=== PATIENT | female | born 1990 | race Caucasian/White ===

== ENCOUNTER 2025-04-27 09:07 | Emergency (ER) | payer OTHER, SELFPAY ==
--- OUTSIDE RECORDS SUMMARY | 2025-04-27 09:13 | XMS_ITS | Encounter Summary ---
Author Organization [facility] er Address [address] [place] [address] Care Team Providers Care Pasting Inspector Name Role Phone Wendy Mcguire MD Primary Care Provider [phone] Encounter Details Date Type Department Care Team (Late st Contact Info) Description 02/18/2025 Telephone SE [facility] [address] [place] [address] Kiana Juárez, [facility] [address] [place] [address] Social History Tobacco Use Types Packs/Day Years Used Date Smoking Tobacco: Former Cigarettes Smokeless Tobacco: Never Alcohol Use Standard Drinks/Week Comments Not Currently 0 (1 standard drink = 0.6 oz pur e alcohol) Sober since 04/22/24, B1300 Health Literacy Answer Date Recor ded How often do you need to hav e someone help you when you read instructions, pamphlets, or other written material from your doctor or pharmacy? Never 08/18/2024 [facility] Utilities Answer Date Recorded In the past 12 months has e electric, gas, oil, or water company threatened to shut off services in your home? No 08/18/2024 Social Connection and Isolation Panel Answer Date Recorded In a typical week, how many times do you talk on the phone with family, friends, or neighbors? More than three times a week 08/18/2024 How often do you get togethe r with friends or relatives? Once a week 08/18/2024 How often do you attend chur ch or episcopal services? More than 4 times per year 08/18/2024 Do you belong to any clubs o r organizations such as episcopalian groups, unions, fraternal or athletic groups, or school groups? Yes 08/18/2024 How often do you attend meet ings of the clubs or organizations you belong to? More than 4 times per year 08/18/2024 Are you , , di vorced, , never , or living with a partner? Living with partner 08/18/2024 AUDIT-C Answer Date Recorded Q1: How often do you have a drink containing alcohol? Never 08/18/2024 Q2: How many drinks containi ng alcohol do you have on a typical day when you are drinking? Patient does not drink Q3: How often do you have si x or more drinks on one occasion? Never 08/18/2024 Overall Financial Resource Strain (CARDIA) Answe r Date Recorded How hard is it for you to pa y for the very basics like food, housing, medical care, and heating? Hard 08/18/2024 PHQ-2 Answer Date Recorded PHQ-9 Total Score 8 12/30/2024 [facility] - Occupational Stress Questionnaire Answer Date Recorded Do you feel stress - tense, restless, nervous, or anxious, or unable to sleep at night because your mind is troubled all the time - these days? Rather much 08/18/2024 Exercise Vital Sign Answer Date Recorde d On average, how many days pe r week do you engage in moderate to strenuous exercise (like a brisk walk)? 5 days 08/18/2024 On average, how many minutes do you engage in exercise at this level? 30 min 08/18/2024 Hunger Vital Sign Answer Date Recorded Within the past 12 months, y ou worried that your food would run out before you got the money to buy more. Often true Within the past 12 months, t he food you bought just didn't last and you didn't have money to get more. Sometimes true PRAPARE - Transportation Answer Date Re corded In the past 12 months, has l ack of transportation kept you from medical appointments or from getting medications? No 07/25 In the past 12 months, has l ack of transportation kept you from meetings, work, or from getting things needed for daily living? No 08/18/2024 [place] Depression Scale Answer Date Recorded [place] Depression Scale Total 10 02/18/2025 The thought of harming myself has occurred to me . Never 02/18/2025 Housing Stability Vital Sign Answer Mark e Recorded In the last 12 months, was t here a time when you were not able to pay the mortgage or rent on time? Yes 08/18/2024 In the past 12 months, how m any times have you moved where you were living? 1 08/18/2024 At any time in the past 12 m [facility], were you homeless or living in a mcc (including now)? 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 1 02/18/2025 11:00 AM Shaan Whitten RN I have looked forward with enjoyment to things. 1 02/18/2025 11:00 AM Duglas Vincent RN I have blamed myself unnecessarily when things went wrong. 2 02/18/2025 11:00 AM Candace Vincent RN I have been anxious or worri ed for no good reason. 1 02/18/2025 11:00 AM Candace Vincent RN I have felt scared or panick y for no good reason. 2 02/18/2025 11:00 AM Candace Vincent RN Things have been getting on top of me. 0 02/18/2025 11:00 AM Candace Vincent RN I have been so unhappy that I have had difficulty sleeping. 2 02/18/2025 11:00 AM Shaan Whitten RN I have felt sad or miserable. 1 02/18/2025 11:00 AM Shaan Vincent RN I have been so unhappy that I have been crying. 0 02/18/2025 11:00 AM CDT Candace Dominguez RN The thought of harming myschemo f has occurred to me. 0 02/18/2025 11:00 AM CDT Candace Dominguez RN [place] Depressi on Scale Total 10 02/18/2025 11:00 AM CDT Candace Dominguez RN documented as of this encounter Miscellaneous Notes * Telephone Encounter - Kiera Redman - 02/18/2025 3:37 PM CDT Called patient per request from social service to get her in for an urgent apt to our social service dept. Patient declined to scheduled an apt stating that she feels everything is going fine that itis just first time mom things. Drier And Pulverizer Tender told patient that if she started to feel like she needed tosee someone that she should call our social service dept and we would do what we could to get her in for an apt NANCY. Patient stated she would call if she felt she needed to come in. documented in this encounter Plan of Treatment Not on file documented as of this encounter Visit Diagnoses Not on filedocumented in this encounter Care Teams Pasting Inspector Relationship Specialty Start Date End Date Wendy Mcguire MD [address] [place] [phone] PCP - General 12/08/24 documented as of this encounter
--- OUTSIDE RECORDS SUMMARY | 2025-04-27 09:13 | XMS_ITS | Encounter Summary ---
Author Organization [facility] er Address [address] [place] [address] Care Team Providers Care Size Cutter Name Role Phone Wendy Mcguire MD Primary Care Provider [phone] Encounter Details Date Type Department Care Team (Late st Contact Info) Description 02/17/2025 Results Follow-Up [facility]'s [facility] Dungeon Master [address] [place] [address] Carolina Alves MD [address] [place] [address] Confirmed Drug Abuse Panel, Autumn, U, Adulterants Survey, Autumn, U, RPR Social History Tobacco Use Types Packs/Day Years [...] from your doctor or pharmacy? Never 08/18/2024 [facility] Utilities Answer Date Recorded In the past 12 months has [employer], gas, oil, or water [employer] threatened to shut off services in your [...] 08/18/2024 How often do you attend chur or adventism services? More than 4 times per year 08/18/2024 Do you belong to any clubs o r organizations such as oriental orthodox groups, unions, fraternal or athletic groups, or [...] Date Recorded PHQ-9 Total Score 8 12/30/2024 [facility] - Occupational Stress Questionnaire Answer Date Recorded [...] things needed for daily living? No 08/18/2024 [place] Depression Scale Answer Date Recorded [place] Depression Scale Total 10 02/18/2025 The thought [...] any time in the past 12 m [facility], were you homeless or living in a prison (including now)? 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 0 02/18/2025 11:00 AM Candace Vincent RN The thought of harming myschemo f has occurred to me. 0 02/18/2025 11:00 AM Candace Vincent RN [place] Depressi on Scale Total 10 02/18/2025 11:00 AM Candace Vincent RN documented as of this encounter Plan of Treatment Not on file documented as of this encounter Visit Diagnoses Not on filedocumented in this encounter Care Teams Size Cutter Relationship Specialty Start Date End Date Wendy Mcguire MD [address] [place] [phone] PCP - General 12/08/24 documented as of this encounter
--- OUTSIDE RECORDS SUMMARY | 2025-04-27 09:13 | XMS_ITS | Encounter Summary ---
Author Organization [facility] er Address [address] [place] [address] Care Team Providers Care Premium Note Interest Calculator Clerk Name Role Phone Wendy Mcguire MD Primary Care Provider [phone] Reason for Visit * Reason Comments Med Refill Encounter Details Date Type Department Care Team (Late st Contact Info) Description 10/01/2022 Refill [facility] [address] [place] [address] Adarsh Manuel MD [address] [place] [address] Chronic insomnia; Chemical dependency (HCC) Social History Tobacco Use Types Packs/Day Years Used Date Smoking Tobacco: Former Smokeless Tobacco: Never Alcohol Use Standard Drinks/Week Comments Not Currently 0 (1 standard drink = 0.6 oz pur e alcohol) PHQ-2 Answer Date Recorded PHQ-9 Total Score 2 06/05/2022 Comments No Sex and Gender Information Value Date Recorded Sex Assigned at Not on file Legal Sex Female 2:24 PM CELLAR PACKER Gender Identity Not on file Sexual Orientation Not on file documented as of this encounter Functional Status documented as of this encounter Miscellaneous Notes * Telephone Encounter - Roselyn Blanchard - 10/04/2022 9:32 AM CDT Tried calling both numbers on file and both state she is no longer in the facility. * Telephone Encounter - Karina [place] RN - 10/03/2022 3:31 PM CDT Please call Dr. Petty says needs appt. * Telephone Encounter - Domitila Styles LPN - 10/03/2022 2:39 PM CDT Upcoming appointment with provider: Visit date not found Last visit in provider department: 06/05/2022 Last visit requested medication was discussed:06/05/22 Last Rx: QUEtiapine (SEROquel) 25 MG tablet 09/16/22 #15 no refills cyproheptadine (PERIACTIN) 4 MG tablet 08/27/22 #45 no refills busPIRone (BUSPAR) 15 MG tablet 08/27/22 #60 no refills gabapentin (NEURONTIN) 800 MG tablet 08/27/22 #90 no refills Requested Prescriptions Pending Prescriptions Disp Refills QUEtiapine (SEROquel) 25 MG tablet [Pharmacy Med Name: QUEtiapine Fumarate 25MG TABS*] 15 tablet 0 Sig: TAKE 1 TABLET BY MOUTH DAILY AT BEDTIME NEEDED cyproheptadine (PERIACTIN) 4 MG tablet [Pharmacy Med Name: Cyproheptadine HCl 4MG TABS] 3 tablet Sig: TAKE 1 & 1/2 TABLETS BY MOUTH AT BEDTIME NEEDED busPIRone (BUSPAR) 15 MG tablet [Pharmacy Med Name: busPIRone HCl 15MG TABS*] 4 tablet Sig: TAKE 1 TABLET BY MOUTH TWICE A DAY FOR ANXIETY gabapentin (NEURONTIN) 800 MG tablet [Pharmacy Med Name: Gabapentin 800MG TABS] 6 tablet Sig: TAKE 1 TABLET BY MOUTH THREE TIMES A DAY NEEDED Labs: Vitals: BP Readings from Last 2 Encounters: 06/05/22 110/56 02/26/22 106/68 Last Controlled Substance Agreement (CSA): Last Random Urine Drug Screen (RUDS): documented in this encounter Plan of Treatment Not on file documented as of this encounter Visit Diagnoses Diagnosis Chronic insomnia Insomnia, unspecified Chemical dependency (HCC) Unspecified drug dependence, unspecified abuse documented in this encounter Care Teams Premium Note Interest Calculator Clerk Relationship Specialty Start Date End Date Wendy Mcguire MD [address] [place] [phone] PCP - General 12/08/24 documented as of this encounter
--- OUTSIDE RECORDS SUMMARY | 2025-04-27 09:13 | XMS_ITS | Encounter Summary ---
Author Organization [facility] er Address [address] [place] [address] Care Team Providers Care Briquette Molder Name Role Phone Wendy Mcguire MD Primary Care Provider [phone] Encounter Details Date Type Department Care Team (Late st Contact Info) Description 02/07/2025 Results Follow-Up [facility]'s [facility] Solaris Administrator [address] [place] [address] Kala Saeed, DNP, FISHER CRAB, ELECTRICAL MAINTENANCE TECHNICIAN [address] [place] [address] Group B strep culture Social History Tobacco Use Types Packs/Day Years [...] from your doctor or pharmacy? Never 08/18/2024 [facility] Utilities Answer Date Recorded In the past 12 months has [employer], gas, oil, or water [employer] threatened to shut off services in your [...] How often do you attend chur or spiritism services? More than 4 times per year 08/18/2024 Do you belong to any clubs o r organizations such as religion groups, unions, fraternal or athletic groups, or [...] Date Recorded PHQ-9 Total Score 8 12/30/2024 [facility] - Occupational Stress Questionnaire Answer Date Recorded [...] things needed for daily living? No 08/18/2024 [place] Depression Scale Answer Date Recorded [place] Depression Scale Total 10 02/18/2025 The thought [...] time in the past 12 m [facility], were you homeless or living in a penitentiary (including now)? 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 0 02/18/2025 11:00 AM Candace Vincent RN [place] Depressi on Scale Total 10 02/18/2025 11:00 AM Candace Vincent RN documented as of this encounter Plan of Treatment Not on file documented as of this encounter Visit Diagnoses Not on filedocumented in this encounter Care Teams Briquette Molder Relationship Specialty Start Date End Date Wendy Mcguire MD [address] [place] [phone] PCP - General 12/08/24 documented as of this encounter
--- OUTSIDE RECORDS SUMMARY | 2025-04-27 09:13 | XMS_ITS | Encounter Summary ---
Author Organization [facility] er Address [address] [place] [address] Care Team Providers Care Traffic Workforce Representative Name Role Phone Wendy Mcguire MD Primary Care Provider [phone] Reason for Visit * Reason Onset Date Comments Med Refill 11/01/2021 Encounter Details Date Type Department Care Team (Late st Contact Info) Description 11/01/2021 Refill [facility] [address] [place] [address] Adarsh Manuel MD [address] [place] [address] Chemical dependency (HCC) (Primary Dx) Social History Tobacco Use Types Packs/Day Years Used Date Smoking Tobacco: Former Smokeless Tobacco: Never Alcohol Use Standard Drinks/Week Comments Not Currently 0 (1 standard drink = 0.6 oz pur e alcohol) PHQ-2 Answer Date Recorded PHQ-9 Total Score 14 10/15/2021 Comments No Sex and Gender Information Value Date Recorded Sex Assigned at Not on file Legal Sex Female 2:24 PM REVENUE INSPECTOR Gender Identity Not on file Sexual Orientation Not on file documented as of this encounter Plan of Treatment Not on file documented as of this encounter Visit Diagnoses Diagnosis Chemical dependency (HCC)- Primary Unspecified drug dependence, unspecified abuse documented in this encounter Additional Health Concerns Infection Onset Date Last Indicated Resolved Time COVID-19 Rule Out 03/12/2022 03/12/2022 03/12/2022 10:41 AM CDT documented as of this encounter Care Teams Traffic Workforce Representative Relationship Specialty Start Date End Date Wendy Mcguire MD [address] [place] [phone] PCP - General 12/08/24 documented as of this encounter
--- OUTSIDE RECORDS SUMMARY | 2025-04-27 09:13 | XMS_ITS | Encounter Summary ---
Author Organization [facility] er Address [address] [place] [address] Care Team Providers Care Director It Project Name Role Phone Wendy Mcguire MD Primary Care Provider [phone] Encounter Details Date Type Department Care Team (Late st Contact Info) Description 09/14/2021 Telephone [facility] [address] [place] [address] Adarsh Manuel MD [address] [place] [address] Social History Tobacco Use Types Packs/Day Years Used Date Smoking Tobacco: Former Smokeless Tobacco: Never PHQ-2 Answer Date Recorded PHQ-9 Total Score 12 08/16/2021 Comments Unknown Sex and Gender Information Value Date Recorded Sex Assigned at Not on file Legal Sex Female 2:24 PM CANVASSING MANAGER Gender Identity Not on file Sexual Orientation Not on file documented as of this encounter Functional Status documented as of this encounter Plan of Treatment Not on file documented as of this encounter Visit Diagnoses Not on filedocumented in this encounter Additional Health Concerns Infection Onset Date Last Indicated Resolved Time COVID-19 Rule Out 10/15/2021 10/15/2021 10/15/2021 10:12 AM CDT COVID-19 Rule Out 03/12/2022 03/12/2022 03/12/2022 10:41 AM CDT documented as of this encounter Care Teams Director It Project Relationship Specialty Start Date End Date Wendy Mcguire MD [address] [place] [phone] PCP - General 12/08/24 documented as of this encounter
--- OUTSIDE RECORDS SUMMARY | 2025-04-27 09:13 | XMS_ITS | Encounter Summary ---
Author Organization [facility] er Address [address] [place] [address] Care Team Providers Care Medical Assembly Name Role Phone Wendy Mcguire MD Primary Care Provider [phone] Encounter Details Date Type Department Care Team (Late st Contact Info) Description 02/09/2025 Results Follow-Up [facility] Plant Attendant Or Assistant Operator [address] [place] [address] Kala Saeed, DNP, SUPERVISOR WOOD CREW, BOARD OF DIRECTORS [address] [place] [address] Ultrasound OB Biophysical Profile WO Non Stress Testing Social History Tobacco Use Types Packs/Day Years [...] from your doctor or pharmacy? Never 08/18/2024 [facility] Utilities Answer Date Recorded In the past 12 months has [employer], [employer], oil, or water [employer] threatened to shut off services in your [...] How often do you attend chur or hindu services? More than 4 times per year 08/18/2024 Do you belong to any clubs o r organizations such as sikh groups, unions, fraternal or athletic groups, or [...] Date Recorded PHQ-9 Total Score 8 12/30/2024 [facility] - Occupational Stress Questionnaire Answer Date [...] things needed for daily living? No 08/18/2024 [place] Depression Scale Answer Date Recorded [place] Depression Scale Total 10 02/18/2025 The thought [...] any time in the [facility] or living in a correction (including now)? 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 Not on file Not on file documented as of this encounter Functional Status * Question Answer Date of Assessment Author BP 123/79 02/14/2025 9:15 AM Eula June RN Pulse 93 02/14/2025 9:15 AM Eula June RN * [place] Depression Scale: In the Past 7 Days [...] 0 02/18/2025 11:00 AM Candace Vincent RN [place] Depressi on Scale Total 10 02/18/2025 11:00 AM Candace Vincent RN documented as of this encounter Plan of Treatment Not on file documented as of this encounter Visit Diagnoses Not on filedocumented in this encounter Care Teams Medical Assembly Relationship Specialty Start Date End Date Wendy Mcguire MD [address] [place] [phone] PCP - General 12/08/24 documented as of this encounter
--- OUTSIDE RECORDS SUMMARY | 2025-04-27 09:14 | XMS_ITS | Encounter Summary ---
Author Organization [facility] er Address [address] [place] [address] Care Team Providers Care Quality Consultant Name Role Phone Wendy Mcguire MD Primary Care Provider [phone] Reason for Visit * Reason Comments Med Refill Encounter Details Date Type Department Care Team (Late st Contact Info) Description 03/15/2022 Refill [facility] Dermatology [address] [place] [address] Mohini Veras MD Acne vulgaris Social History Tobacco Use Types Packs/Day Years Used Date Smoking Tobacco: Former Smokeless Tobacco: Never Alcohol Use Standard Drinks/Week Comments Not Currently 0 (1 standard drink = 0.6 oz pur e alcohol) PHQ-2 Answer Date Recorded PHQ-9 Total Score 3 02/12/2022 Comments No Sex and Gender Information Value Date Recorded Sex Assigned at Not on file Legal Sex Female 2:24 PM RADIO ENGINEER Gender Identity Not on file Sexual Orientation Not on file documented as of this encounter Miscellaneous Notes * Telephone Encounter - Sophia Sweeney MD - 03/18/2022 5:48 PM CDT Patient no-showed for visit. Needs appointment for refills. * Telephone Encounter - Berenice Lemos LPN - 03/18/2022 3:29 PM CDT Patient is scheduled to be seen today. Please advise at visit. Last visit in provider department: 12/15/2021 Last visit requested medication was discussed: 12/15/2021 Last Rx: #60 with 2 refills 12/15/2021 Requested Prescriptions Pending Prescriptions Disp Refills ??? doxycycline (VIBRAMYCIN) 100 MG capsule [Pharmacy Med Name: Doxycycline Hyclate 100MG CAPS] 60 capsule Sig: TAKE 1 CAPSULE BY MOUTH TWICE A DAY TAKE WITH FOOD - NOT DAIRY Labs: n/a Vitals: BP Readings from Last 2 Encounters: 02/26/22 106/68 02/12/22 108/63 documented in this encounter Plan of Treatment Not on file documented as of this encounter Visit Diagnoses Diagnosis Acne vulgaris Other acne documented in this encounter Care Teams Quality Consultant Relationship Specialty Start Date End Date Wendy Mcguire MD [address] [place] [phone] PCP - General 12/08/24 documented as of this encounter
--- OUTSIDE RECORDS SUMMARY | 2025-04-27 09:14 | XMS_ITS | Clinical Summary ---
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 [place] [address] * RPR (02/13/2025 6:29 AM CDT) RPR NON-REACTI VE Non-reacti ve 02/15/2025 9:06 PM CDT [facility] Blood 02/13/2025 6:29 AM CDT 02/13/2025 6:59 AM CDT us Bre Mcdaniel MD LAB BLOOD ORDERABLES Final Res ult [facility] [address] [place] [phone] * Miscellaneous [facility] (02/12/2025 8:15 PM CDT) Miscellaneous [facility] see below 02/22/2025 8:50 AM CDT [facility] Comment: See Scanned [place] Report 02/12/2025 8:15 PM CDT 02/13/2025 9:07 PM CDT Bre Mcdaniel MD LAB BLOOD ORDERABLES Final Res ult Performing Organization Address City/[facility]/ZIP Co de Phone Number [facility] [address] [place] [address], * (ABNORMAL) Carboxy-THC Confirmation, Ivan, U (02/12/2025 8:15 PM CDT) Pathologist [facility] Carboxy-THC Immunoassay Screen SEE BELOW(A) Cutoff: 50 02/17/2025 12:42 PM CDT [facility] Comment: Presumptive Positive Interpretation Positive. 02/17/2025 12:42 PM CDT [facility] Comment: ADDITIONAL INFORMATION This report is intended for use in clinical monitoring and management of patients. It is not intended for use in employment-related testing. This test was developed and its performance characteristics determined by [facility] in a manner consistent with CLIA requirements. This test has not been cleared or approved by the U.S. Food and Drug Administration. Delta-8 Carboxy-THC by LC-MS/MS 304 Cutoff: 5 ng/mL 02/17/2025 12:42 PM CDT [facility] Delta-9 Carboxy-THC by LC-MS/MS 695 Cutoff: 5 ng/mL 02/17/2025 12:42 PM CDT [facility] Chain of Custody - 02/18/20 12:42 PM CDT [facility] Comment: Chain of custody documents are on file in the [facility]. Test Performed by: [place] [address] Office Machinery Or Equipment Installer: Lissett Oseguera Ph.D.; CLIA# [id number] 02/12/2025 8:15 PM CDT 02/13/2025 9:07 PM CDT us Bre Mcdaniel MD LAB URINE ORDERAB[place] [address], [place] * Adulterants Survey, Ivan, U (02/12/2025 8:15 PM CDT) Creatinine Concentration 89.4 mg/dL 02/16/2025 9:57 AM CDT [facility] Specific [place], Urine 1.018 02/16/2025 9:57 AM CDT [facility] pH, Urine 6.5 02/16/2025 9:57 AM CDT [facility] Oxidants Negative Cutoff: 200 mg/L 02/16/2025 9:57 AM CDT [facility] Comment Normal 02/16/2025 9:57 AM CDT [facility] Comment: Test Performed by: [facility] [place] [address] Office Machinery Or Equipment Installer: Lissett Oseguera Ph.D.; CLIA# [id number] 02/12/2025 8:15 PM CDT 02/13/2025 9:07 PM CDT Bre Mcdaniel MD LAB URINE ORDERABLES [place] [address], [place] * (ABNORMAL) Confirmed Drug Abuse Panel, Ivan, U (02/12/2025 8:15 PM CDT) [facility] Alcohol SEE BELOW(A) Cutoff: 10 mg/dL 02/16/2025 1:25 PM CDT [facility] Comment: Presumptive Positive Drug confirmation to follow. Presumptive Positive means that the screening method is positive, but the test needs to be run by a confirmatory method before being finalized. Amphetamines Negative Cutoff: 500 ng/mL 02/16/2025 1:25 PM CDT [facility] Barbiturates Negative Cutoff: 200 ng/mL 02/16/2025 1:25 PM CDT [facility] Benzodiazepines Negative Cutoff: 100 ng/mL 02/16/2025 1:25 PM CDT [facility] Cocaine Negative Cutoff: 150 ng/mL 02/16/2025 1:25 PM T [facility] Comment: This cocaine immunoassay targets benzoylecgonine the primary metabolite of cocaine. Methadone Metabolite Negative Cutoff: 300 ng/mL 02/16/2025 1:25 PM CDT [facility] Opiates Negative Cutoff: 300 ng/mL 02/16/2025 1:25 PM CDT [facility] Phencyclidine, Mec Negative Cutoff: 25 ng/mL 02/16/2025 1:25 PM CDT [facility] Tetrahydrocannabinol SEE BELOW(A) Cutoff: 50 ng/mL 02/16/2025 1:25 PM T [facility] Comment: Presumptive Positive This immunoassay targets delta-9 tetrahydrocannabinol carboxylic acid (THC-COOH), a metabolite of delta-9 tetrahydrocannabinol the main psychoactive ingredient of marijuana. Drug confirmation to follow. Presumptive Positive means that the screening method is positive, but the test needs to be run by a confirmatory method before being finalized. Chain of Custody - 02/17/20 1:25 PM CDT [facility] Comment: Chain of custody documents are on file in the [facility]. ADDITIONAL INFORMATION This report is intended for use in clinical monitoring or management of patients. It is not intended for use in employment-related testing. This test has been modified from the multimedia developer's instructions. Its performance characteristics were determined by [facility] in a manner consistent with CLIA requirements. This test has not been cleared or approved by the U.S. Food and Drug Administration. Test Performed by: [facility] [address] [facility], [place] [address] Office Machinery Or Equipment Installer: Lissett Oseguera Ph.D.; CLIA# [id number] Urine (Urine, Catheter) 02/12/2025 8:15 PM CDT 02/13/2025 9:07 PM CDT us Bre Mcdaniel MD LAB URINE ORDERABLES Final Res ult [address] [address], [place] * (ABNORMAL) Rapid drug screen, urine (02/12/2025 8:15 PM CDT) [facility] Rapid Urine Drug Screen ----- 02/12/2025 11:33 PM [facility] Comment: This is a screening test. Positive results should be considered presumptive and are sent to [facility] for confirmation. This test is not for legal purposes - only medical. Tetrahydrocannabinol DETECTED(A ) Not Detected 02/12/2025 11:57 PM [facility] Phencyclidine, Mec NOT DETECTED Not Detected 02/12/2025 11:57 PM [facility] Cocaine NOT DETECTED Not Detected 02/12/2025 11:57 PM [facility] Methamphetamine NOT DETECTED Not Detected 02/12/2025 11:57 PM [facility] Opiates NOT DETECTED Not Detected 02/12/2025 11:57 PM [facility] Amphetamines NOT DETECTED Not Detected 02/12/2025 11:57 PM [facility] Benzodiazepines NOT DETECTED Not Detected 02/12/2025 11:57 PM [facility] TCA, Urine NOT DETECTED Not Detected 02/12/2025 11:57 PM [facility] Methadone NOT DETECTED Not Detected 02/12/2025 11:57 PM [facility] Barbiturates NOT DETECTED Not Detected 02/12/2025 11:57 PM [facility] Oxycodone NOT DETECTED Not Detected 02/12/2025 11:57 PM CDT [facility] Buprenorphine NOT DETECTED Not Detected 02/12/2025 11:57 PM CDT [facility] Detectable Levels ----- 025 11:33 PM CDT [facility] Comment: Amphetamines 500 ng/mL Barbiturates 200 ng/mL Buprenorphine 10 ng/ml Benzodiazepines 150 ng/mL Cocaine 150 ng/mL Methamphetamine 500 ng/mL Methadone 200 ng/mL Opiates 100 ng/mL Oxycodone 100 ng/mL Phencyclidine 25 ng/mL Tetrahydrocannabinol 50 ng/mL Tricyclic Antidepressant 300 ng/mL Urine (Urine, Catheter) 02/12/2025 8:15 PM CDT 02/12/2025 11:33 PM CDT Bre Mcdaniel MD LAB URINE ORDERABLES Final Res ult Performing Organization Address [facility]/ZIP Co de Phone Number [facility] [address] [place] [address] * Type and Screen (Gel) (02/12/2025 7:05 PM CDT) ABO/Rh B POS 02/12/2025 7:57 PM CDT [facility] Antibody Screen NEG 02/12/2025 7:57 PM CDT [facility] Blood (Blood, Venous) 02/12/2025 7:05 PM CDT 02/12/2025 7:19 PM CDT Bre Mcdaniel MD LAB BLOOD BANK TEST ORDERABLES Final Result Performing Organization Address [facility]/ZIP Co de Phone Number [facility] [address] [place], [place] [phone] * HC AN EPIDURAL BLOCK CHARGE (02/12/2025 6:40 PM CDT) Narrative Angela Mittal MD - 02/12/2025 6:40 PM CDT Angela Mittal MD 02/12/2025 6:40 PM Epidural Block Patient location during procedure: OB Start time: 02/12/2025 6:25 PM End time: 02/12/2025 6:31 PM Reason for block: procedure for pain Staffing Performed: anesthesiologist Anesthesiologist: Angela Mittal MD Performed by: Angela Mittal MD Authorized by: Angela Mittal MD Preanesthetic Checklist Completed: patient identified, IV checked, site marked, risks and benefits discussed, surgical consent, monitors and equipment checked, pre-op evaluation and timeout performed Block Placement Patient position: sitting Prep: ChloraPrep and site prepped and draped Patient monitoring: heart rate and continuous pulse ox Approach: midline Location: L4-L5 Needle Needle type: Tuohy Needle gauge: 17 G Needle length: 3.5 Needle insertion depth: 7 cm Catheter type: side hole Catheter size: 19. Test dose: No Spinal Effects and No Tinnitus Medications Administered lidocaine 1.5%-EPINEPHrine 1:200,000 (XYLOCAINE W/EPI) injection - Epidural 3 mL - 02/12/2025 6:28:00 PM us Angela Mittal MD ANESTHESIA ORDERABLES Final Result * Ultrasound OB Biophysical Profile WO Non Stress Testing (02/09/2025 4:44 PM CDT) Anatomical Region Laterality Modality Body, Pelvis Ultrasound Impressions 02/09/2025 4:53 PM CDT The biophysical profile score is 8 out of 8. Narrative 02/09/2025 4:53 PM CDT INDICATION: non reactive NST COMPARISON: OB ultrasound January 19, 2025 FINDINGS: ULTRASOUND OB BIOPHYSICAL PROFILE WO NON STRESS TESTING The biophysical profile score is 8 out of 8. Cervical length is within normal limits, measuring 4.0 cm. The presentation is cephalic. The placenta is anterior. The heart rate is 155 beats per minute. The MVP is within normal limits, measuring 6.2 cm. The stomach, kidneys, bladder, and diaphragm show no anomaly. Biophysical profile (testing time 30 minutes) 1. breathing movements - continuous breathing for 30 seconds within 30 minutes; present = 2 and absent =0. Score = 2 2. movement - three or more discrete body/limb movements within 30 minutes; present = 2 and absent = 0. Score = 2 3. tone - one or more episodes of extension of a extremity with return to flexion, or opening or closing of a hand; present = 2 and absent = 0. Score = 2 4. Amniotic fluid volume - a single vertical pocket exceeding 2 cm; present = 2 and absent = 0. Score = 2 Procedure Note Gisele Simons MD - 02/09/2025 INDICATION: non reactive NST COMPARISON: OB ultrasound January 19, 2025 FINDINGS: ULTRASOUND OB BIOPHYSICAL PROFILE WO NON STRESS TESTING The biophysical profile score is 8 out of 8. Cervical length is withinnormal limits, measuring 4.0 cm. The presentation is cephalic. Theplacenta is anterior. The heart rate is 155 beats per minute. TheMVP is within normal limits, measuring 6.2 cm. The stomach,kidneys, bladder, and diaphragm show no anomaly. Biophysical profile (testing time 30 minutes) 1. breathing movements - continuous breathing for 30 seconds ntwext19 minutes; present = 2 and absent =0. Score = 2 2. movement - three or more discrete body/limb movements within 30minutes; present = 2 and absent = 0. Score = 2 3. tone - one or more episodes of extension of a extremitywith return to flexion, or opening or closing of a hand; present = 2 andabsent = 0. Score = 2 4. Amniotic fluid volume - a single vertical pocket exceeding 2 cm;present = 2 and absent = 0. Score = 2 IMPRESSION: The biophysical profile score is 8 out of 8. us Kala Saeed DNP, LAUNDRY BAG PUNCH OPERATOR, STAGING TECHNICIAN IMG OB US PROCEDU RES Final Result * Group B strep culture (02/02/2025 10:30 AM CDT) Group B Strep Culture No Grp B Strep isolated. 02/05/2025 10:40 AM CDT [facility] Group B Strep (Vaginal/rectal) 02/02/2025 10:30 AM CDT 02/02/2025 1:45 PM CDT Comment:Group B Strep Cultur e us Kala Saeed DNP, LAUNDRY BAG PUNCH OPERATOR, STAGING TECHNICIAN LAB MICROBIOLOGY - GENERAL ORDERABLES Final Result [facility] [address] [place] [address] * 3 Hr GTT () (02/02/2025 8:12 AM CDT) Fasting Blood Glucose, 3 hr OB 80 70 - 95 mg/dL 02/02/2025 8:35 AM CDT [facility] 1Hr Glucose (OB) 131 mg/dL 02/03/20 12:03 PM T [facility] 2Hr Glucose (OB) 163 mg/dL 02/03/20 12:03 PM T [facility] 3Hr Glucose (OB) TNP mg/dL 02/03/20 11:37 AM T [facility] Comment: Patient unavailable to complete testing. Interpretive Notes ----- 02/02/2025 8:13 AM T [facility] Comment: Diagnosis of Gestational Diabetes is indicated if at least TWO values meet or exceed the following parameters: Fasting Glucose 95 mg/dL One hour Glucose 180 mg/dL Two hour Glucose 155 mg/dL Three hour Glucose 140 mg/dL Based on ADA guidelines Blood 02/02/2025 8:12 AM CDT 02/02/2025 8:12 AM CDT Sandrita Wyatt Malou [facility] LAB BLOOD ORDERABLES Final Result Performing Organization Address City/[facility] Co de Phone Number [facility] [address] [place] [address] [facility] [address] [place] [address] * Estimated Glomerular Filtration Rate (eGFR) (01/28/2025 2:57 AM CDT) Estimated Glomerular Filtration Rate (eGFR) >60 01/28/2025 3:13 AM T [facility] Comment: GFR calculated from serum creatinine value Chronic Kidney Disease less than 60 mL/min/1.73 m2 Kidney Failure less than 15 mL/min/1.73 m2 Note: effective 05/22/2022: 2020 CKD-EPI Equation used 01/28/2025 2:57 AM CDT 01/28/2025 2:57 AM CDT us Evelyn Bloom MD LAB BLOOD ORDERABLES Lary l Result Performing Organization Address [facility] de Phone Number [facility] [address] [place] [phone] * Magnesium (01/28/2025 2:57 AM CDT) Magnesium 1.8 1.6 - 2.3 mg/dL 01/28/2025 3:13 AM CDT [facility] Blood (Blood, Venous) 01/28/2025 2:57 AM CDT 01/28/2025 3:00 AM CDT Evelyn Bloom MD LAB BLOOD ORDERABLES Lary l Result Performing Organization Address [facility] Phone Number [facility] [address] [place], [place] [phone] * Lipase (01/28/2025 2:57 AM CDT) Lipase 108 23 - 300 U/L 01/28/2025 3:13 AM CDT [facility] Blood (Blood, Venous) 01/28/2025 2:57 AM CDT 01/28/2025 3:00 AM CDT Evelyn Bloom MD LAB BLOOD ORDERABLES Lary l Result Performing Organization Address [facility] de Phone Number [facility] [address] [place] [phone] * (ABNORMAL) Comprehensive metabolic panel (01/28/2025 2:57 AM CDT) Total Protein 8.6(H) 6.3 - 8.2 g/dL 01/28/2025 3:13 AM CDT [facility] Albumin, Serum 4.6 3.5 - 5.0 g/dL 01/28/2025 3:13 AM CDT [facility] Total Bilirubin 0.7 0.1 - 1.0 mg/dL 01/28/2025 3:13 AM [facility] AST 28 8 - 43 U/L 01/28/2025 3:13 AM [facility] Alkaline Phosphatase 155(H) 38 - 128 U/L 01/28/2025 3:13 AM [facility] ALT (SGPT) 20 0 - 34 U/L 01/28/2025 3:13 AM [facility] Sodium 135 135 - 145 mEq/L 01/28/2025 3:13 AM [facility] Potassium 3.6 3.5 - 5.1 mEq/L 01/28/2025 3:13 AM [facility] Chloride 106 98 - 107 mEq/L 01/28/2025 3:13 AM [facility] CO2 <9(L) 22 - 29 mmol/L 01/28/2025 3:13 AM [facility] BUN <4(L) 5 - 25 mg/dL 01/28/2025 3:13 AM [facility] Creatinine 0.72 0.40 - 1.20 mg/dL 01/28/2025 3:13 AM [facility] Glucose 104(H) 70 - 100 mg/dL 01/28/2025 3:13 AM [facility] Calcium, Total,S 9.6 8.4 - 10.2 mg/dL 01/28/2025 3:13 AM [facility] Anion Gap see below 4 - 13 01/28/2025 3:13 AM [facility] Comment: Unable to calculate The anion gap is calculated with the following formula: AGAP = Na ? (Cl + CO2). Fasting? Yes 01/28/2025 3:00 AM [facility] Blood (Blood, Venous) 01/28/2025 2:57 AM CDT 01/28/2025 3:00 AM T us Evelyn Bloom MD LAB BLOOD ORDERABLES Lary wyatt Result [facility] [address] [place] [address] * ECG 12 lead (01/28/2025) us Evelyn Bloom MD ECG ORDERABLES Final Res ult from Last 3 Months Insurance MEDICA Advance Directives For more information, please contact: [phone] * Full Code (Latest Code Status on File) Date Activated Date Inactivated Comments 02/13/2025 2:53 AM 02/14/2025 3:41 PM * Full Code Date Activated Date Inactivated Comments 02/12/2025 5:53 PM 02/13/2025 2:53 AM * Full Code Date Activated Date Inactivated Comments 01/05/2025 8:36 AM 01/05/2025 3:15 PM * Full Code Date Activated Date Inactivated Comments 12/04/2023 10:33 PM 12/06/2023 5:32 PM Care Teams Mainframe Programmer Relationship Specialty Start Date End Date Wendy Mcguire MD [address] [place] [id number] PCP - General 12/08/24
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
--- OUTSIDE RECORDS SUMMARY | 2025-04-27 09:14 | XMS_ITS | Encounter Summary ---
Author Organization [facility] er Address [address] [place] [address] Care Team Providers Care Digital Associate Name Role Phone Wendy Mcguire MD Primary Care Provider [phone] Encounter Details Date Type Department Care Team (Late st Contact Info) Description 02/28/2025 Telephone [facility] [address] [place] [address] Melodie Agudelo MD [address] [place] [address] Social History Tobacco Use Types [...] from your doctor or pharmacy? Never 08/18/2024 [facility] Utilities Answer Date Recorded In the past [...] often do you attend chur ch or anabaptism services? More than 4 times per year 08/18/2024 Do you belong to any clubs o r organizations such as christian groups, unions, fraternal or athletic groups, or [...] Total Score 8 12/30/2024 [facility] - Occupational Stress Questionnaire Answer Date [...] things needed for daily living? No 08/18/2024 [place] Depression Scale Answer Date Recorded [place] Depression Scale Total 10 02/18/2025 The thought [...] any time in the past 12 [facility], were you homeless or living in a fci (including now)? 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
--- OUTSIDE RECORDS SUMMARY | 2025-04-27 09:14 | XMS_ITS | Encounter Summary ---
Author Organization [facility] er Address [address] [place] [address] Care Team Providers Care Network Support Analyst Name Role Phone Wendy Mcguire MD Primary Care Provider [phone] Reason for Visit * Reason Comments Med Refill Encounter Details Date Type Department Care Team (Late st Contact Info) Description 07/16/2022 Refill [facility] [address] [place] [address] Adarsh Manuel MD [address] [place] [address] Chronic insomnia (Primary Dx); Anxiety; Depression, unspecified depression type Social History Tobacco Use Types Packs/Day Years Used Date Smoking Tobacco: Former Smokeless Tobacco: Never Alcohol Use Standard Drinks/Week Comments Not Currently 0 (1 standard drink = 0.6 oz pur e alcohol) PHQ-2 Answer Date Recorded PHQ-9 Total Score 2 06/05/2022 Comments No Sex and Gender Information Value Date Recorded Sex Assigned at Not on file 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 Requested Prescriptions Pending Prescriptions Disp Refills ??? sertraline (ZOLOFT) 25 MG tablet [Pharmacy Med Name: Sertraline HCl 25MG TABS] 30 tablet 3 Sig: TAKE 1 TABLET BY MOUTH DAILY WITH 100 MG TABLET, TOTAL DAILY DOSE 125 MG ??? sertraline (ZOLOFT) 100 MG tablet [Pharmacy Med Name: Sertraline HCl 100MG TABS] 30 tablet 2 Sig: TAKE 1 TABLET BY MOUTH DAILY ALONG WITH 25MG ??? QUEtiapine (SEROquel) 25 MG tablet [Pharmacy Med Name: QUEtiapine Fumarate 25MG TABS*] 15 tablet Sig: TAKE 1 TABLET BY MOUTH DAILY AT BEDTIME NEEDED Labs: Vitals: BP Readings from Last 2 Encounters: 06/05/22 110/56 02/26/22 106/68 INE ROUGH ROUNDER documented in this encounter Plan of Treatment Not on file documented as of this encounter Visit Diagnoses Diagnosis Chronic insomnia- Primary Insomnia, unspecified Anxiety Anxiety state, unspecified Depression, unspecified depression type documented in this encounter Care Teams Network Support Analyst Relationship Specialty Start Date End Date Wendy Mcguire MD [address] [place] [phone] PCP - General 12/08/24 documented as of this encounter
--- OUTSIDE RECORDS SUMMARY | 2025-04-27 09:14 | XMS_ITS | Encounter Summary ---
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 doxycycline (VIBRAMYCIN) 100 MG capsule [Pharmacy Med Name: Doxycycline Hyclate 100MG CAPS] 60 capsule Sig: TAKE 1 CAPSULE BY MOUTH TWICE A DAY TAKE WITH FOOD - NOT DAIRY Vitals: BP Readings from Last 2 Encounters: 02/26/22 106/68 02/12/22 108/63 Upcoming appointment with provider: 03/18/22 documented in this encounter Plan of Treatment Not on file documented as of this encounter Visit Diagnoses Diagnosis Acne vulgaris Other acne documented in this encounter Additional Health Concerns Infection Onset Date Last Indicated Resolved Time COVID-19 Rule Out 03/12/2022 03/12/2022 03/12/2022 10:41 AM CDT documented as of this encounter Care Teams Classroom Paraprofessional Relationship Specialty Start Date End Date Wendy Mcguire MD [address] [place] [phone] PCP - General 12/08/24 documented as of this encounter
--- OUTSIDE RECORDS SUMMARY | 2025-04-27 09:14 | XMS_ITS | Encounter Summary ---
Author Organization [facility] er Address [address] [place] [address] Care Team Providers Care Race Starter Name Role Phone Wendy Mcguire MD Primary Care Provider [phone] Encounter Details Date Type Department Care Team (Late st Contact Info) Description 02/26/2022 Telephone [facility] [address] [place] [address] Adarsh Manuel MD [address] [place] [address] Social History Tobacco Use Types Packs/Day Years Used Date Smoking Tobacco: Former Smokeless Tobacco: Never Alcohol Use Standard Drinks/Week Comments Not Currently 0 (1 standard drink = 0.6 oz pur e alcohol) PHQ-2 Answer Date Recorded PHQ-9 Total Score 3 02/12/2022 Comments No Sex and Gender Information Value Date Recorded Sex Assigned at Not on file 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 Gender Identity Not on file Sexual Orientation Not on file documented as of this encounter Functional Status documented as of this encounter Plan of Treatment Not on file documented as of this encounter Results * ECG 12 lead (02/27/2022 12:00 AM CDT) us Adarsh Manuel MD ECG ORDERABLES Final Result [facility] documented in this encounter Visit Diagnoses Diagnosis Chemical dependency (HCC)- Primary Unspecified drug dependence, unspecified abuse Eating disorder, unspecified type documented in this encounter Additional Health Concerns Infection Onset Date Last Indicated Resolved Time COVID-19 Rule Out 03/12/2022 03/12/2022 03/12/2022 10:41 AM CDT documented as of this encounter Care Teams Race Starter Relationship Specialty Start Date End Date Wendy Mcguire MD [address] [place] [phone] PCP - General 12/08/24 documented as of this encounter
--- OUTSIDE RECORDS SUMMARY | 2025-04-27 09:14 | XMS_ITS | Clinical Summary ---
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 upper quadrant pain COMPARISON: Right upper quadrant abdominal ultrasound from 04/29/2021 TECHNIQUE: Limited abdominal ultrasound. FINDINGS: GALLBLADDER: Normal. No gallstones, wall thickening, or pericholecysticfluid. Negative sonographic Thompson's sign. BILE DUCTS: No biliary dilatation. The common duct measures 5 mm. LIVER: Normal parenchyma with smooth contour. No focal mass. RIGHT KIDNEY: No hydronephrosis. PANCREAS: The visualized portions are normal. No ascites. IMPRESSION: No acute process identified in the imaged right upper quadrant. Normalappearance of the gallbladder. us Consuelo Khalil MD US Final Resu lt * (ABNORMAL) CBC W PLT NO DIFF (03/02/2025 7:01 AM CDT) WHITE BLOOD COUNT 9.4 4.5 - 11.0 thou/cu mm 03/02/2025 7:43 AM CDT [facility] RED BLOOD COUNT 4.15 4.00 - 5.20 mil/cu mm 03/02/2025 7:43 AM CDT [facility] HEMOGLOBIN 12.2 12.0 - 16.0 g/dL 03/02/2025 7:43 AM CDT [facility] HEMATOCRIT 37.7 33.0 - 51.0 % 03/02/2025 7:43 AM CDT [facility] MCV 91 80 - 100 fL 03/02/2025 7:43 AM CDT [facility] MCH 29.4 26.0 - 34.0 pg 03/02/2025 7:43 AM CDT [facility] MCHC 32.4 32.0 - 36.0 g/dL 03/02/2025 7:43 AM CDT [facility] RDW 16.6(H) 11.5 - 15.5 % 03/02/2025 7:43 AM CDT [facility] PLATELET COUNT 350 140 - 440 thou/cu mm 03/02/2025 7:43 AM CDT [facility] MPV 9.8 6.5 - 11.0 fL 03/02/2025 7:43 AM CDT [facility] NRBC 0.0 % 03/02/2025 7:43 AM CDT [facility] ABS NRBC 0.0 thou /cu mm 03/02/2025 7:43 AM CDT [facility] Blood BLOOD SPECIMEN / Unknown IV Start / Unknown 03/02/2025 7:01 AM CDT 03/02/2025 7:40 AM CDT us Consuelo Khalil MD HEMATOLOGY Final Resu lt [facility] [address] [place] [address], * ETHANOL SERUM OR PLASMA (03/02/2025 7:01 AM CDT) ETHANOL <0.010 <0.010 g/dL 03/02/2025 7:59 AM CDT [facility] Blood BLOOD SPECIMEN / Unknown IV Start / Unknown 03/02/2025 7:01 AM CDT 03/02/2025 7:40 AM CDT Consuelo Khalil MD CHEMISTRY Final Resu lt [facility] [address] [place] [id number], [place] [phone] * LIPASE (03/02/2025 7:01 AM CDT) LIPASE 35.6 13.0 - 60.0 IU/L 03/02/2025 8:01 AM CDT [facility] Blood BLOOD SPECIMEN / Unknown IV Start / Unknown 03/02/2025 7:01 AM CDT 03/02/2025 7:40 AM CDT Consuelo Khalil MD CHEMISTRY Final Resu lt [facility] [address] [place] [id number], * (ABNORMAL) HEPATIC FUNCTION PANEL (03/02/2025 7:01 AM CDT) ALBUMIN 5.1(H) 4.0 - 4.9 g/dL 03/02/2025 8:01 AM CDT [facility] PROTEIN,TOTAL 8.8(H) 6.0 - 8.0 g/dL 03/02/2025 8:01 AM CDT [facility] BILIRUBIN,TOTAL 1.2 0.0 - 1.2 mg/dL 03/02/2025 8:01 AM CDT [facility] BILIRUBIN,DIRECT 0.6(H) 0.0 - 0.2 mg/dL 03/02/2025 8:01 AM CDT [facility] BILIRUBIN,INDIRE CT 0.6 0.2 - 0.8 mg/dL 03/02/2025 8:01 AM CDT [facility] ALK PHOSPHATASE 140(H) 35 - 104 IU/L 03/02/2025 8:01 AM CDT [facility] ALT (SGPT) 195(H) 10 - 35 IU/L 03/02/2025 8:01 AM CDT [facility] AST (SGOT) 175(H) 10 - 35 IU/L 03/02/2025 8:01 AM CDT [facility] Blood BLOOD SPECIMEN / Unknown IV Start / Unknown 03/02/2025 7:01 AM CDT 03/02/2025 7:40 AM CDT Consuelo Khalil MD CHEMISTRY Final Resu lt [facility] [address] [place] [address], * Acute hepatitis panel TODAY (05/01/2021 8:31 AM [facility]) HEPATITIS C ANTIBODY Non-Reactive Non-Reactive 05/01/2021 1:01 PM [facility] Comment:Antibodies to HCV no t detected; does not exclude the possibility of exposure to HCV. IGM ANTI HAV Non-Reactive Non-Reactive 05/01/20 21 1:01 PM [facility] HBSAG Nonreactive Nonreactive 05/01/2021 1:01 PM [facility] [employer] IGM ANTI HBC Non-Reactive Non-Reactive 05/01/20 21 1:01 PM [facility] Blood BLOOD SPECIMEN / Unknown Venipuncture / Unknown 05/01/2021 8:31 AM [facility] 05/01/2021 8:41 AM [facility] [facility] Narrative [facility] - 05/01/2021 1:01 PM [employer] Anti-HBc IgM not detected. Does not exclude the possibility of exposure to or infection with HBV. Dimas Vieira MD SEND OUTS Final Result [facility] [address] [place] [address], [place] from Last 3 Months or Most Recently Relevant to Health Maintenance Insurance MEDICAID RO[facility] AND [facility] HOSPICE ONLY MEDICA CHOICE FORMERLY [facility] Advance Directives * Full Code (Latest Code Status on File) Date Activated Date Inactivated Comments 04/30/2021 4:51 PM 05/02/2021 2:29 PM Question Answer Comments Code Status Discussion: Reviewed Preferences * Full Code Date Activated Date Inactivated Comments 12/28/2019 4:48 PM 12/30/2019 12:45 PM Question Answer Comments Code Status Discussion: Discussed * Full Code Date Activated Date Inactivated Comments 10/31/2019 1:05 AM 11/02/2019 1:20 PM * Full Code Date Activated Date Inactivated Comments 09/25/2019 10:17 PM 09/28/2019 2:22 PM * Full Code Date Activated Date Inactivated Comments 09/04/2019 9:54 AM 09/06/2019 11:31 AM Care Teams Morning Show Producer Relationship Specialty Start Date End Date Mishel [place] [address] PCP - General Family Practice 03/11/25 Ami Felix NP Nurse Practitioner 04/29/21
[2025-04-27 09:16] VITALS: BP 140/104; PULSE 68; RESP 18; TEMP 36.3; O2SAT 98; BMI 32.2
--- NOTE | 2025-04-27 10:01 | ED.GENADULT ---
HPI - General Adult General Chief complaint: Alcohol/Intoxication Stated complaint: Alcohol withdrawal Time Seen by Provider: 04/27/25 09:52 History of Present Illness HPI narrative: Patient is a pleasant 34 white female has a chronic alcohol problem. She has been sober for a while but has had a recent relapse. She is drinking a half a L of alcohol a day. She last drank on Friday by her report. She since has had pain in her stomach that is been mild, in the epigastrium. She reports not having eaten much since Friday. She has had no history of pancreatitis, no history of significant withdrawal, intubation with withdrawal from alcohol or withdrawal seizures. She is at this point feeling like some fluid and perhaps some Ativan will be helpful for she has had this in the past and it helps her stabilize until she can get treatment again. She denies chest pain, breathing problem. She is on Zoloft for home medication but has not been taken at the last few days. She has a past medical history depression anxiety. Related Data Previous Rx's ?Medication ?Instructions ?Recorded lorazepam 0.5 mg tablet (Ativan) 0.5 mg PO TID PRN #10 tabs 04/27/25 Allergies Allergy/AdvReac Type Severity Reaction Status Date / Time No Known Drug Allergies Allergy Verified 04/27/25 09:23 Review of Systems Status of ROS: Reports: 6 or more systems reviewed and unremarkable except as noted in History and below PFSH PFS Social History Smoking Status: Never smoker How often do you have a drink containing alcohol: 4 or more times a week How many standard drinks containing alcohol do you have on a typical day: 10 or more How often do you have six or more drinks on one occasion: Daily or almost daily AUDIT-C Alcohol total score: 12 Non-prescribed substance use: denies use service: No Exam Narrative: Exam Narrative: Objective: Vital signs look within normal limits other than diastolic pressure is elevated, the patient is afebrile, alert orient x3 Does not smell of alcohol No facial asymmetry neck supple pulse regular abdomen is soft mild epigastric tenderness to palpation but no palpable masses no right upper quadrant pain Extremities are no edema Neurologic grossly nonfocal. Const: Vital Signs, click to edit/add: Vital Signs - 24 hr 04/27/25 09:16 Temperature 97.3 F L Pulse Rate [Pulse Oximeter] 68 Respiratory Rate 18 Blood Pressure [Ri t Upper Arm] 140/104 H Pulse Oximetry 98 Oxygen Delivery Me thod Room Air Course Vital Signs Vital signs: Initial Vital Signs Temperature 97.3 F L 04/27/25 09:16 Temperature Source Temporal Artery Scan 04/27/25 09:16 Pulse Rate 68 04/27/25 09:16 Respiratory Rate 18 04/27/25 09:16 Blood Pressure 140/104 H 04/27/25 09:16 Blood Pressure Mean 116 H 04/27/25 09:16 Blood Pressure Position Supine 04/27/25 09:16 Pulse Oximetry 98 04/27/25 09:16 Oxygen Delivery Method Room Air 04/27/25 09:16 Vital Signs Temperature 97.3 F L 04/27/25 09:16 Pulse Rate 68 04/27/25 09:16 Respiratory Rate 18 04/27/25 09:16 Blood Pressure 140/104 H 04/27/25 09:16 Pulse Oximetry 98 04/27/25 09:16 Oxygen Delivery Method Room Air 04/27/25 09:16 Temperature 97.3 F L 04/27/25 09:16 Pulse Rate 68 04/27/25 09:16 Respiratory Rate 18 04/27/25 09:16 Blood Pressure 140/104 H 04/27/25 09:16 Pulse Oximetry 98 04/27/25 09:16 Oxygen Delivery Method Room Air 04/27/25 09:16 Medications Administered Medications: Discontinued Medications Generic Name Dose Route Start Last Admin Trade Name Freq PRN Reason Stop Dose Admin Sodium Chloride 1,000 mls @ 6,000 mls/hr 04/27/25 10:00 04/27/25 12:08 0.9 % Sodium Chloride 1000 Ml IV 04/27/25 10:09 Infused .Q10M NANCIE Infusion Sodium Chloride 1,000 mls @ 6,000 mls/hr 04/27/25 11:30 04/27/25 12:12 0.9 % Sodium Chloride 1000 Ml IV 04/27/25 11:39 Infused .Q10M NANCIE Infusion Lorazepam 1 mg 04/27/25 09:59 04/27/25 10:41 Lorazepam 2 Mg/Ml Inj IVP 04/27/25 10:00 1 mg ONCE ONE Administration Lorazepam 0.5 mg 04/27/25 11:53 04/27/25 12:08 Lorazepam 2 Mg/Ml Inj IVP 04/27/25 11:54 0.5 mg ONCE ONE Administration Ondansetron HCl 4 mg 04/27/25 09:59 04/27/25 10:41 Ondansetron 2 Mg/Ml Inj IVP 04/27/25 10:00 4 mg ONCE ONE Administration Pantoprazole Sodium 40 mg 04/27/25 09:59 04/27/25 10:41 Pantoprazole Sodium 40 Mg Inj IVP 04/27/25 10:00 40 mg ONCE ONE Administration Medical Decision Making MDM Narrative Medical decision making narrative: 34-year-old white female with history of alcoholism, currently with probable mild dehydration, gastritis. Will check labs to rule out pancreatitis. I think some IV hydration, some anxiolytics for her nausea would be helpful. Will also give her some Zofran. Disposition pending her findings are lab studies. She would like to get back into treatment and she knows how to arrange this. Will review labs and other studies as they return. Addendum 11:15 a.m.: The patient feels less nausea feels better with medication and some fluid. I will give her 2nd bag of fluid of saline. And then a lower to go home. Will send her home for the nausea with some small dose Ativan 0.5 3 times a day as needed. Recommend she get back into treatment. She has this lab studies that show slightly elevated white count as well she has got a slightly elevated anion gap, likely due to dehydration and her alcohol use, her alcohol level is 0, her liver function tests were just minimally elevated AST and ALT at 44 respectively. Lipase fortunately is normal at 43, with no indication of pancreatitis. Alcohol level is negative. Rest, fluids, avoid alcohol, get back into treatment, Ativan as needed for nausea or discomfort. Return as needed. Recommend follow-up with primary care in the next 2-3 days as well. Lab Data Labs: Lab Results 04/27/25 Range/Units 10:37 WBC 13.97 H (4.50-11.00) K/uL RBC 4.11 (4.00-5.20) m/uL Hgb 12.4 (12.0-16.0) gm/dL Hct 37.0 (33.0-51.0) % MCV 90 (80-100) fL MCH 30 (26-34) pg MCHC 34 (32-36) gm/dL RDW Coeff of Luis 17.0 H (11.5-15.5) % Plt Count 263 (140-440) K/uL Neut % (Auto) 83.0 H (42.0-72.0) % Lymph % (Auto) 7.2 L (20-44) % [place] % (Auto) 9.4 (0.0-11.0) % Eos % (Auto) 0.0 (0.0-7.0) % Baso % (Auto) 0.1 (0.0-3.0) % Neut # (Auto) 11.60 H (1.7-7.0) K/uL Lymph # (Auto) 1.00 (0.90-2.90) K/uL [place] # (Auto) 1.30 H (0.00-0.90) K/UL Eos # (Auto) 0.00 (0.00-0.50) K/uL Baso # (Auto) 0.00 (0.00-0.30) K/uL Abs Immat Gran (auto) 0.00 (0.00-0.30) K/uL Imm/Tot Granulo (auto) 0.3 % Sodium 136 (135-149) mmol/L Potassium 3.8 (3.6-5.1) mmol/L Chloride 95 L (96-114) mmol/L Carbon Dioxide 18 L (20-32) mmol/L Anion Gap 23 H (7-15) mEq/L BUN 16 (5-24) mg/dL Creatinine 0.6 (0.5-1.5) mg/dL Estimated Creat Clear 94.00 Estimated GFR 120 ml/min Glucose 124 H (60-115) mg/dL Calcium 9.8 (8.4-10.6) mg/dL Total Bilirubin 1.0 (0.1-1.5) mg/dL Direct Bilirubin 0.6 H (0.0-0.5) mg/dL AST 44 H (12-35) U/L ALT 44 H (4-35) U/L Alkaline Phosphatase 69 (40-150) U/L Total Protein 8.7 H (6.0-8.3) g/dL Albumin 5.4 H (3.3-5.0) g/dL Amylase 60 (18-89) U/L Lipase 43 (23-300) U/L Ethyl Alcohol < 0.01 (0.01-0.03) % Discharge Plan Discharge Clinical Impression: Gastritis, Acute dehydration, Alcoholism, chronic Patient Disposition: Home w/ Parent or Adult Condition: Improved Additional Instructions: Get back into AA treatment, avoid alcohol, recommend Prilosec 20 mg (OTC)daily for the next couple of weeks, will give you a small dose Ativan for the nausea and vomiting that he can use as needed, do not drink or drive with that medication. Recommend recheck with her primary care doctor in the next 2-4 days. Activity Level: Light activity and Up with assist Discharge Diet: Full Liquid Diet Detail: Advance diet as tolerated Prescriptions: New lorazepam [Ativan] 0.5 mg tablet 0.5 mg PO TID PRNQty: 10 0RF Stand Alone Forms: [employer] Info Instructions
[2025-04-27] MEDS: PANTOPRAZOLE SODIUM 40 MG INJ IVP (10:41)
[2025-04-27] MEDS: ONDANSETRON 2 MG/ML inj 4 MG IVP (10:41)
[2025-04-27 10:48] LABS: Hematocrit* 37.0 % (33.0-51.0); Hemoglobin* 12.4 gm/dL (12.0-16.0); Immature Granulocytes Pct Auto 0.3 %; Lymphocytes Absolute Auto 1.00 K/uL (0.90-2.90); Mean Corpuscular HGB Conc 34 gm/dL (32-36); Mean Corpuscular Hemoglobin 30 pg (26-34); Mean Corpuscular Volume 90 fL (80-100); RDW Coefficient of Variation % 17.0 % (11.5-15.5); Red Blood Count* 4.11 m/uL (4.00-5.20); White Blood Count* 13.97 K/uL (4.50-11.00)
[2025-04-27 10:51] LABS: Immature Granulocytes Abs Auto 0.00 K/uL (0.00-0.30); Slide Review Reflex No
[2025-04-27 10:58] LABS: Albumin* 5.4 g/dL (3.3-5.0); Chloride* 95 mmol/L (96-114); Potassium* 3.8 mmol/L (3.6-5.1); Sodium* 136 mmol/L (135-149)
[2025-04-27 11:00] LABS: Blood Urea Nitrogen* 16 mg/dL (5-24)
[2025-04-27 11:01] LABS: Alanine Aminotransferase* 44 U/L (4-35); Alkaline Phosphatase* 69 U/L (40-150); Anion Gap 23 mEq/L (7-15); Aspartate Amino Transferase* 44 U/L (12-35); Bilirubin Direct* 0.6 mg/dL (0.0-0.5); Bilirubin Total* 1.0 mg/dL (0.1-1.5); Calcium* 9.8 mg/dL (8.4-10.6); Carbon Dioxide* 18 mmol/L (20-32); Creatinine* 0.6 mg/dL (0.5-1.5); Est. Creatinine Clearance* 94.00; Estimated Glomerular Filt Rate 120 ml/min; Glucose* 124 mg/dL (60-115); Total Protein* 8.7 g/dL (6.0-8.3)
[2025-04-27 11:02] LABS: Ethanol* < 0.01 % (0.01-0.03)
== END 2025-04-27 12:13 | disposition home or self-care (01) ==
PROVIDERS: Emergency Provider Family Medicine
DX: K29.20 Alcoholic gastritis without bleeding (principal); F10.20 Alcohol dependence, uncomplicated; E86.0 Dehydration; R11.0 Nausea
CPT/HCPCS: 36415; 80048; 80076; 82077; 82150; 83690; 85025; 96361; 96374; 96375; 96376; 99284; J2060; J2405; J2470; J7030

== ENCOUNTER 2025-04-28 17:57 | Emergency (ER) | payer OTHER, SELFPAY ==
[2025-04-28 18:04] VITALS: BP 142/88; PULSE 109; RESP 20; TEMP 36.9; O2SAT 97; BMI 30.1
--- NOTE | 2025-04-28 18:47 | ED_ITS ---
HPI - General Adult General Date Seen: 04/28/25 Chief complaint: Nausea/Vomiting Stated complaint: alcohol withdrawal Time Seen by Provider: 04/28/25 18:22 Source: patient Mode of arrival: ambulatory Limitations: no limitations History of Present Illness HPI narrative: Patient is a 34-year-old female presenting to the emergency department for nausea and vomiting. She is concerned she could be going through alcohol withdrawal. She was seen in this emergency department yesterday and was diagnosed with gastritis and sent home with Ativan for concerns of alcohol withdrawal. She has been vomiting unable to take the Ativan. She has not take any nausea medicine currently. States she last had a drink 4 days ago when she drink 0.25 L of hard liquor on Friday. She states she has been drinking heavily for the past 2 weeks. Has not had issues with heavy drinking before that. She is 10 weeks admits to struggle with depression. This was her 1st . She does smoke marijuana also but only smokes every few days she states. Is not a daily user. Has never had issues with this much of nausea before. Denies fevers, chills, chest pain, shortness of breath, abdominal pain, diarrhea, constipation, fevers, chills. No other concerns noted at this time. Related Data Previous Rx's ?Medication ?Instructions ?Recorded lorazepam 0.5 mg tablet (Ativan) 0.5 mg PO TID PRN #10 tabs 04/27/25 Allergies Allergy/AdvReac Type Severity Reaction Status Date / Time No Known Drug Allergies Allergy Verified 04/27/25 09:23 Review of Systems Status of ROS: Reports: 10 or more systems reviewed and unremarkable except as noted in History and below [facility] Social History Smoking Status: Never smoker How often do you have a drink containing alcohol: never AUDIT-C Alcohol total score: 0 Non-prescribed substance use: marijuana (any form) service: No Exam Narrative: Exam Narrative: Const: Well-nourished, Well-developed, in moderate distress Eyes: PERRL, no conjunctival injection, and symmetrical lids HENT: Atraumatic external nose and ears. Moist mucous membranes. Neck: Symmetric, trachea midline, No thyromegaly. CVS: RRR, No murmurs or gallops. Peripheral pulses 2+ and equal in all extremities RESP: Unlabored respiratory effort. Clear to auscultation bilaterally. GI: Nontender/Nondistended, No rebound or guarding. Dry heaving MSK:Extremities w/o deformity, Normal Active ROM Skin: Warm, Dry. No rashes or lesions. Neuro: Normal Muscle tone, No focal neurological deficits. Psych: Awake, Alert, & Oriented x3. Appropriate mood and affect. Const: Vital Signs, click to edit/add: Vital Signs - 24 hr 04/28/25 18:04 Temperature 98.5 F Pulse Rate [Right Pulse Oximeter] 109 H Respiratory Rate 20 Blood Pressure [Ri ght Upper Arm] 142/88 H Pulse Oximetry 97 Oxygen Delivery Me thod Room Air Course Vital Signs Vital signs: Initial Vital Signs Temperature 98.5 F 04/28/25 18:04 Temperature Source Temporal Artery Scan 04/28/25 18:04 Pulse Rate 109 H 04/28/25 18:04 Respiratory Rate 20 04/28/25 18:04 Blood Pressure 142/88 H 04/28/25 18:04 Blood Pressure Mean 106 H 04/28/25 18:04 Blood Pressure Position Sitting 04/28/25 18:04 Pulse Oximetry 97 04/28/25 18:04 Oxygen Delivery Method Room Air 04/28/25 18:04 Vital Signs Temperature 98.5 F 04/28/25 18:04 Pulse Rate 109 H 04/28/25 18:04 Respiratory Rate 20 04/28/25 18:04 Blood Pressure 142/88 H 04/28/25 18:04 Pulse Oximetry 97 04/28/25 18:04 Oxygen Delivery Method Room Air 04/28/25 18:04 Temperature 98.5 F 04/28/25 18:04 Pulse Rate 109 H 04/28/25 18:04 Respiratory Rate 20 04/28/25 18:04 Blood Pressure 142/88 H 04/28/25 18:04 Pulse Oximetry 97 04/28/25 18:04 Oxygen Delivery Method Room Air 04/28/25 18:04 Medications Administered Medications: Generic Name Dose Route Start Last Admin Trade Name Freq PRN Reason Stop Dose Admin Lactated Ringer's 1,000 mls @ 1,000 mls/hr 04/28/25 18:32 04/28/25 18:56 Lactated Ringers 1000 Ml IV 04/28/25 19:31 1,000 mls/hr .Q1H ONE Administration Discontinued Medications Generic Name Dose Route Start Last Admin Trade Name Vernq PRN Reason Stop Dose Admin Ondansetron HCl 4 mg 04/28/25 18:32 04/28/25 18:56 Ondansetron 2 Mg/Ml Inj IVP 04/28/25 18:33 4 mg ONCE ONE Administration Medical Decision Making MDM Narrative Medical decision making narrative: Patient is a 34-year-old female presenting to the emergency department for nausea and vomiting. Was previously diagnosed with gastritis. Did a CIWA score and it was 7. Did give her fluids for dehydration and Zofran for nausea. Will check a CBC and CMP. Differential this time includes cannabinoid hyperemesis syndrome, alcohol withdrawals, gastritis. Will hold off any imaging at this time as I do not believe it is indicated. The tachycardia is more likely related to her nausea and any intra-abdominal issues. Lab work returned showing no concerning abnormalities. He does a very mildly elevated liver enzymes. She states she has been told this before. Otherwise no concerning abnormalities were seen. She is feeling much better after the medication. She feels comfortable for discharge. Will send home with Zofran via and instymeds. She is agreeable to this plan. Diagnosis: Nausea and vomiting Lab Data Labs: Lab Results 04/28/25 Range/Units 18:45 WBC 9.06 (4.50-11.00) K/uL RBC 4.31 (4.00-5.20) m/uL Hgb 12.9 (12.0-16.0) gm/dL Hct 38.7 (33.0-51.0) % MCV 90 (80-100) fL MCH 30 (26-34) pg MCHC 33 (32-36) gm/dL RDW Coeff of Luis 16.7 H (11.5-15.5) % Plt Count 273 (140-440) K/uL Neut % (Auto) 70.6 (42.0-72.0) % Lymph % (Auto) 13.9 L (20-44) % [place] % (Auto) 15.2 H (0.0-11.0) % Eos % (Auto) 0.1 (0.0-7.0) % Baso % (Auto) 0.0 (0.0-3.0) % Neut # (Auto) 6.39 (1.7-7.0) K/uL Lymph # (Auto) 1.30 (0.90-2.90) K/uL [place] # (Auto) 1.40 H (0.00-0.90) K/UL Eos # (Auto) 0.01 (0.00-0.50) K/uL Baso # (Auto) 0.00 (0.00-0.30) K/uL Abs Immat Gran (auto) 0.02 (0.00-0.30) K/uL Imm/Tot Granulo (auto) 0.2 % Sodium 132 L (135-149) mmol/L Potassium 3.6 (3.6-5.1) mmol/L Chloride 91 L (96-114) mmol/L Carbon Dioxide 22 (20-32) mmol/L Anion Gap 19 H (7-15) mEq/L BUN 12 (5-24) mg/dL Creatinine 0.6 (0.5-1.5) mg/dL Estimated Creat Clear 94.00 Estimated GFR 120 ml/min Glucose 119 H (60-115) mg/dL Calcium 9.2 (8.4-10.6) mg/dL Total Bilirubin 1.2 (0.1-1.5) mg/dL AST 47 H (12-35) U/L ALT 36 H (4-35) U/L Alkaline Phosphatase 53 (40-150) U/L Total Protein 8.7 H (6.0-8.3) g/dL Albumin 5.0 (3.3-5.0) g/dL Discharge Plan Discharge Clinical Impression: Nausea & vomiting Qualifiers: Vomiting type: unspecified Qualified Code(s): R11.2 - Nausea with vomiting, unspecified Patient Disposition: Home, Self-Care Condition: Improved Instructions: Acute Nausea and Vomiting (DC) Additional Instructions: Is very important you stop using marijuana and stop drinking alcohol. Make sure you continue to follow-up about your time depression. I did provide Zofran via instymeds to use as needed for nausea. Prescriptions: No Action lorazepam [Ativan] 0.5 mg tablet 0.5 mg PO TID PRNQty: 10 0RF Follow Up/Referrals: Provider,Not a Local [Primary Care Provider, Family Practice] Stand Alone Forms: [employer] Info Instructions
[2025-04-28] MEDS: ONDANSETRON 2 MG/ML inj 4 MG IVP (18:56)
[2025-04-28] MEDS: LACTATED RINGERS 1000 ML 1,000 ML IV (18:56)
[2025-04-28 18:58] LABS: Hematocrit* 38.7 % (33.0-51.0); Hemoglobin* 12.9 gm/dL (12.0-16.0); Immature Granulocytes Abs Auto 0.02 K/uL (0.00-0.30); Immature Granulocytes Pct Auto 0.2 %; Mean Corpuscular HGB Conc 33 gm/dL (32-36); Mean Corpuscular Hemoglobin 30 pg (26-34); Mean Corpuscular Volume 90 fL (80-100); RDW Coefficient of Variation % 16.7 % (11.5-15.5); Red Blood Count* 4.31 m/uL (4.00-5.20); White Blood Count* 9.06 K/uL (4.50-11.00)
[2025-04-28 18:59] LABS: Lymphocytes Absolute Auto 1.30 K/uL (0.90-2.90)
[2025-04-28 19:00] LABS: Slide Review Reflex No
[2025-04-28 19:11] LABS: Albumin* 5.0 g/dL (3.3-5.0); Chloride* 91 mmol/L (96-114); Potassium* 3.6 mmol/L (3.6-5.1); Sodium* 132 mmol/L (135-149)
[2025-04-28 19:14] LABS: Alanine Aminotransferase* 36 U/L (4-35); Alkaline Phosphatase* 53 U/L (40-150); Anion Gap 19 mEq/L (7-15); Aspartate Amino Transferase* 47 U/L (12-35); Bilirubin Total* 1.2 mg/dL (0.1-1.5); Blood Urea Nitrogen* 12 mg/dL (5-24); Calcium* 9.2 mg/dL (8.4-10.6); Carbon Dioxide* 22 mmol/L (20-32); Creatinine* 0.6 mg/dL (0.5-1.5); Est. Creatinine Clearance* 94.00; Estimated Glomerular Filt Rate 120 ml/min; Glucose* 119 mg/dL (60-115); Total Protein* 8.7 g/dL (6.0-8.3)
== END 2025-04-28 19:48 | disposition home or self-care (01) ==
PROVIDERS: Emergency Provider Student in an Organized Health Care Education/Training Program
DX: R11.2 Nausea with vomiting, unspecified (principal); Z72.89 Other problems related to lifestyle
CPT/HCPCS: 36415; 80053; 85025; 96361; 96374; 99284; J2405; J7120

== ENCOUNTER 2025-05-17 22:37 | Emergency (ER) | payer OTHER, SELFPAY ==
--- OUTSIDE RECORDS SUMMARY | 2025-05-17 22:39 | XMS_ITS | Encounter Summary ---
Author Organization [facility] er Address [address] [place] [address] Care Team Providers Care Lead Qa Analyst Name Role Phone Wendy Mcguire MD Primary Care Provider [phone] Encounter Details DateTypeDepartmentCare Team (Latest Contact Info)Qcijdfxsqwm63/25/2025Results Follow-Up [facility] Erp Business Analyst [address] [place] [address] Carolina Alves MD [address] [place] [address] Confirmed Drug Abuse Panel, uAtumn, U, Adulterants Survey, Autumn, U, RPR Social History Tobacco UseTypesPacks/DayYears UsedDateSmoking Tobacco: FormerCigarettes Smokeless Tobacco: NeverAlcohol UseStandard Drinks/WeekCommentsNot Currently0 (1 standard drink = 0.6 oz pure alcohol)Sober since 04/22/24,B1300 Health Literacy AnswerDate RecordedHow often do you need to have someone help you when you read instructions, pamphlets, or other written material from your doctor or pharmacy? Never08/18/2024HC UtilitiesAnswerDate RecordedIn the past 12 months has the [employer], gas, oil, or water [employer] threatened to shut off services in your home?No08/18/2024Social Connection and Isolation PanelAnswerDate RecordedIn a typical week, how many times do you talk on the phone with family, friends, or neighbors?More than three times a week08/18/2024How often do you get together with friends or relatives?Once a week08/18/2024How often do you attend mormonism or islam services?More than 4 times per year08/18/2024Do you belong to any clubs or organizations such as mormonism groups, unions, fraternal or athletic gela ups, or school groups?Yes08/18/2024How often do you attend meetings of the clubs or organizations you belong to?More than 4 times per year08/18/2024re you , , , , never , or living with a partner? Living with olxyroh3008/18/2024UDIT-CAnswerDate RecordedQ1: How often do you have a drink containing alcohol?Never08/18/2024Q2: How many drinks containing alcohol do you have on a typical day when you are drinking?Patient does not drink 08/18/2024Q3: How often do you have six or more drinks on one occasion?Never 08/18/2024Overall Financial Resource Strain (CARDIA)AnswerDate RecordedHow hard is it for you to pay for the very basics like food, housing, medical care, and heating?Hard08/18/2024PHQ-2AnswerDate RecordedPHQ-9 Total Iwbcm98412/30/2024 [place] of Occupational Health - Occupational Stress Questionnaire AnswerDate RecordedDo you feel stress - tense, restless, nervous, or anxious, or unable to sleep at night because yourmind is troubled all the time - these days? Rather much08/18/2024Exercise Vital SignAnswerDate RecordedOn average, how many days per week do you engage in moderate to strenuous exercise (like a brisk wal k)?5 days08/18/2024On average, how many minutes do you engage in exercise at this level?30 min08/18/2024Hunger Vital SignAnswerDate RecordedWithin the past 12 months, you worried that your food would run out before you got the money to buymore.Often true08/18/2024Within the past 12 months, the food you bought just didn't last and you didn't have money to get more.Sometimes true08/18/2024 PRAPARE - TransportationAnswerDate RecordedIn the past 12 months, has lack of transportation kept you from medical appointments or from getting medications?No 08/18/2024In the past 12 months, has lack of transportation kept you from meetings, work, or from getting things needed for daily living?No08/18/2024 [place] Depression ScaleAnswerDate RecordedEdinburgh Depression Scale Cclsq8595/26/2025The thought of harming myself has occurred to me.Never02/18/2025Housing Stability Vital SignAnswerDate RecordedIn the last 12 months, was there a time when you were not able to pay the mortgage or rent on time?Yes08/18/2024In the past 12 months, how many times have you moved where you were living?t any time in the past 12 months, were you homeless or living in a halfway (including now)?No08/18/2024CommentsNoSex and Gender InformationValueDate RecordedSex Assigned at BirthNot on fileLegal SexFemale 07/03/2021 2:24 PM CSTGender IdentityNot on fileSexual OrientationNot on file OccupationIndustryJob Start DateJob End DateManagerNot on fileNot on fileNot on filedocumented as of this encounter Functional Status * [place] Depression Scale: In the Past 7 DaysQuestionAnswerDate of AssessmentAuthorI have been able to laugh and see the funny side of things.1 02/18/2025 11:00 AM Shaan Fink RNI have looked forward with enjoyment to things. 11:00 AM Shaan Fink RNI have blamed myself unnecessarily when things went wrong. 11:00 AM Shaan Vincent RNI have been anxious or worried for no good reason.1 02/18/2025 11:00 AM Shaan Fink RNI have felt scared or panicky for no good reason. 11:00 AM Shaan Fink RNThings have been getting on top of me. 11:00 AM Shaan Fink RNI have been so unhappy that I have had difficulty sleeping. 11:00 AM Shaan Fink RNI have felt sad or miserable. 11:00 AM Shaan Fink RNI have been so unhappy that I have been crying. 11:00 AM Shaan Fink RNThe thought of harming myself has occurred to me. 11:00 AM Shaan Fink RNEdinburgh Depression Scale Bmmvn7006/26/2025 11:00 AM Shaan Fink RN documented as of this encounter Plan of Treatment Not on file documented as of this encounter Visit Diagnoses Not on filedocumented in this encounter Care Teams Team MemberRelationshipSpecialtyStart DateEnd Date [facility], Wendy Medley MD [address] [place] [phone] PCP - [facility]12/08/24documented as of this encounter
--- OUTSIDE RECORDS SUMMARY | 2025-05-17 22:39 | XMS_ITS | Encounter Summary ---
Author Organization [facility] er Address [address] [place] [address] Care Team Providers Care Rotary Driller Prospecting Name Role Phone Wendy Mcguire MD Primary Care Provider [phone] Encounter Details DateTypeDepartmentCare Team (Latest Contact Info)Yulmmsrcnto40/15/2025Results Follow-Up [facility] Cotton Picking Machine Operator [address] [place] [address] Kala Saeed, DNP, MANAGEMENT ANALYST, [employer]AR[employer] [address] [place] [address] Group B strep culture Social History Tobacco UseTypesPacks/DayYears UsedDateSmoking Tobacco: FormerCigarettes Smokeless Tobacco: NeverAlcohol UseStandard Drinks/WeekCommentsNot Currently0 (1 standard drink = 0.6 oz pure alcohol)Sober since 04/22/24,B1300 Health Literacy AnswerDate RecordedHow often do you need to have someone help you when you read instructions, pamphlets, or other written material from your doctor or pharmacy? Never08/18/2024HC UtilitiesAnswerDate RecordedIn the past 12 months has the [employer], gas, oil, or water [employer] threatened to shut off services in your home?No08/18/2024Social Connection and Isolation PanelAnswerDate RecordedIn a typical week, how many times do you talk on the phone with family, friends, or neighbors?More than three times a week08/18/2024How often do you get together with friends or relatives?Once a week08/18/2024How often do you attend presybeterian or sabianist services?More than 4 times per year08/18/2024Do you belong to any clubs or organizations such as presybeterian groups, unions, fraternal or athletic gela ups, or school groups?Yes08/18/2024How often do you attend meetings of the clubs or organizations you belong to?More than 4 times per year08/18/2024re you , , , , never , or living with a partner? Living with qcsippy2008/18/2024UDIT-CAnswerDate RecordedQ1: How often do you have a [...] housing, medical care, and heating?Hard08/18/2024PHQ-2AnswerDate RecordedPHQ-9 Total Hdipx74012/30/2024 [facility] [place] of Occupational Health - Occupational Stress Questionnaire [...] from getting things needed for daily living?No08/18/2024 [place] Depression ScaleAnswerDate RecordedEdinburgh Depression Scale Lztcd5008/26/2025The thought of harming myself has occurred to me.Never02/18/2025Housing Stability Vital SignAnswerDate RecordedIn the last 12 months, was there a time when you were not able to pay the mortgage or rent on time?Yes08/18/2024In the past 12 months, how many times have you moved where you were living?t any time in the past 12 months, were you homeless or living in a jail (including now)?No08/18/2024CommentsYesSex and Gender InformationValueDate RecordedSex Assigned at BirthNot on fileLegal Sex Ysvcga9007/03/2021 2:24 PM CSTGender IdentityNot on fileSexual OrientationNot on fileOccupationIndustryJob Start DateJob End DateManagerNot on fileNot on fileNot on filedocumented as of this encounter Functional Status * QuestionAnswerDate of YehdknisupYcpsczVY861/7902/14/2025 9:15 AM Eula Trinh RNPulse9302/14/2025 9:15 AM Eula Trinh RN * [place] Depression Scale: In the Past 7 DaysQuestionAnswerDate [...] 11:00 AM Shaan Fink RNEdinburgh Depression Scale Ywqqg6707/26/2025 11:00 AM Shaan Fink RN documented as of this encounter Plan of Treatment Not on file documented as of this encounter Visit Diagnoses Not on filedocumented in this encounter Care Teams Team MemberRelationshipSpecialtyStart DateEnd Date Shayla, Wendy Medley MD [address] [place] [phone] PCP - [facility]12/08/24documented as of this encounter
--- OUTSIDE RECORDS SUMMARY | 2025-05-17 22:39 | XMS_ITS | Encounter Summary ---
Author Organization [facility] er Address [address] [place] [address] Care Team Providers Care Underwriting Analyst Name Role Phone Wendy Mcguire MD Primary Care Provider [phone] Encounter Details DateTypeDepartmentCare Team (Latest Contact Info)Sejjyngjpil94/17/2025Results Follow-Up [facility] [facility] [address] [place] [address] Kala Saeed, DNP, GUEST RELATIONS EXECUTIVE, TOOL DRAWING CHECKER [address] [place] [address] Ultrasound OB Biophysical Profile WO Non Stress Testing Social History Tobacco UseTypesPacks/DayYears UsedDateSmoking Tobacco: FormerCigarettes Smokeless Tobacco: NeverAlcohol UseStandard Drinks/WeekCommentsNot Currently0 (1 standard drink = 0.6 oz pure alcohol)Sober since 04/22/24,B1300 Health Literacy AnswerDate RecordedHow often do you need to have someone help you when you read instructions, pamphlets, or other written material from your doctor or pharmacy? Never08/18/2024HC UtilitiesAnswerDate RecordedIn the past 12 months has the [employer], gas, oil, or water [place] [employer] threatened to shut off services in your home?No08/18/2024Social Connection and Isolation PanelAnswerDate RecordedIn a typical week, how many times do you talk on the phone with family, friends, or neighbors?More than three times a week08/18/2024How often do you get together with friends or relatives?Once a week08/18/2024How often do you attend latter-day or yazdanism services?More than 4 times per year08/18/2024Do you belong to any clubs or organizations such as latter-day groups, unions, fraAkademos or athletic gela ups, or school groups?Yes08/18/2024How often do you attend meetings of the clubs or organizations you belong to?More than 4 times per year08/18/2024re you , , , , never , or living with a partner? Living with lsxtnqu7708/18/2024UDIT-CAnswerDate RecordedQ1: How often do you have a [...] housing, medical care, and heating?Hard08/18/2024PHQ-2AnswerDate RecordedPHQ-9 Total Xpmcv52512/30/2024 [facility] [place] of Occupational Health - Occupational Stress Questionnaire [...] from getting things needed for daily living?No08/18/2024 [place] Depression ScaleAnswerDate RecordedEdinburgh Depression Scale Autbh9448/26/2025The thought of harming myself has occurred to me.Never02/18/2025Housing Stability Vital SignAnswerDate RecordedIn the last 12 months, was there a time when you were not able to pay the mortgage or rent on time?Yes08/18/2024In the past 12 months, how many times have you moved where you were living?t any time in the past 12 months, were you homeless or living in a fdc (including now)?No08/18/2024CommentsYesSex and Gender InformationValueDate RecordedSex Assigned at BirthNot on fileLegal Sex Pbtovs0807/03/2021 2:24 PM CSTGender IdentityNot on fileSexual OrientationNot on fileOccupationIndustryJob Start DateJob End DateManagerNot on fileNot on fileNot on filedocumented as of this encounter Functional Status * QuestionAnswerDate of SxcdffblktSzhhmlGT299/7902/14/2025 9:15 AM Eula Trinh, BHNghzj6007/22/2025 9:15 AM Eula Trinh RN * [place] Depression Scale: In the Past 7 DaysQuestionAnswerDate [...] 11:00 AM Shaan Fink RNEdinburgh Depression Scale Tpdcz7038/26/2025 11:00 AM Shaan Fink RN documented as of this encounter Plan of Treatment Not on file documented as of this encounter Visit Diagnoses Not on filedocumented in this encounter Care Teams Team MemberRelationshipSpecialtyStart DateEnd Date ShaylaWendy MD [address] [place] [phone] [facility]12/08/24documented as of this encounter
--- OUTSIDE RECORDS SUMMARY | 2025-05-17 22:40 | XMS_ITS | Clinical Summary ---
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 AM CDT No acute process identified in the imaged right upper quadrant. Normal appearance of the gallbladder. Narrative 03/02/2025 7:59 AM CDT For Patients: As a result of the Cures Act, medical imaging exams and procedure reports are released immediately into your electronic medical record. You may view this report before your referring provider. If you have questions, please contact your health care provider. EXAM: US ABDOMEN LIMITED RUQ PORTABLE LOCATION: [facility] DATE: 03/02/2025 INDICATION: Abdomen pain Right upper quadrant pain COMPARISON: Right upper quadrant abdominal ultrasound from 04/29/2021 TECHNIQUE: Limited abdominal ultrasound. FINDINGS: GALLBLADDER: Normal. No gallstones, wall thickening, or pericholecystic fluid. Negative sonographicMurphy's sign. BILE DUCTS: No biliary dilatation. The [...] EXAM: US ABDOMEN LIMITED RUQ PORTABLE LOCATION: [facility] DATE: 03/02/2025 INDICATION: Abdomen pain Right [...] right upper quadrant. Normalappearance of the gallbladder. Authorizing ProviderResult TypeResult StatusAdina Amrita Khalil MDUSFinal Result * (ABNORMAL) CBC W PLT NO DIFF (03/02/2025 7:01 AM CDT)ComponentValueRef Range Test MethodAnalysis TimePerformed AtPathologist SignatureWHITE BLOOD COUNT9.4 4.5 - 11.0 thou/cu mm03/02/2025 7:43 AM [facility] LABRED BLOOD COUNT4.154.00 - 5.20 mil/cu mm03/02/2025 7:43 AM [facility] LABHEMOGLOBIN 12.212.0 - 16.0 g/dL03/02/2025 7:43 AM [facility] XIOXELEEUKLRN39.733.0 - 51.0 %03/02/2025 7:43 AM CDT [facility] YIQSNA2869 - 100 fL 03/02/2025 7:43 AM [facility] LAB MCH29.426.0 - 34.0 pg03/02/2025 7:43 AM [facility] NWQNRAZ34.432.0 - 36.0 g/dL03/02/2025 7:43 AM [facility] PRNAIM69.6(H)11.5 - 15.5 % 03/02/2025 7:43 AM [facility] LAB PLATELET [id number] - 440 thou/cu mm03/02/2025 7:43 AM [facility] LABMPV9.86.5 - 11.0 fL03/02/2025 7:43 AM [facility] LABNRBC0.0% 03/02/2025 7:43 AM [facility] LAB ABS NRBC0.0thou /cu mm03/02/2025 7:43 AM [facility] LABSpecimen (Source)Anatomical Location / Laterality Collection Method / VolumeCollection TimeReceived TimeBloodBLOOD SPECIMEN / UnknownIV Start / Hyiloiw7003/02/2025 7:01 AM CDT1 7:40 AM CDT Narrative Authorizing ProviderResult TypeResult StatusConsuelo Khalil MDHEMATOLOGYFinal ResultPerforming OrganizationAddressCity/State/ZIP CodePhone Number [facility] [address] [place] [phone], * ETHANOL SERUM OR PLASMA (03/02/2025 7:01 AM CDT)ComponentValueRef RangeTest MethodAnalysis TimePerformed AtPathologist SignatureETHANOL<0.010<0.010 g/dL 03/02/2025 7:59 AM [facility] Specimen (Source)Anatomical Location / LateralityCollection Method / Volume Collection TimeReceived TimeBloodBLOOD SPECIMEN / UnknownIV Start / Unknown 03/02/2025 7:01 AM CDT1 7:40 AM CDT Narrative Authorizing ProviderResult TypeResult StatusConsuelo Khalil MDCHEMISTRYFinal ResultPerforming OrganizationAddressty/State/ZIP CodePhone Number [facility] [address] [place] [address], * LIPASE (03/02/2025 7:01 AM CDT)ComponentValueRef RangeTest MethodAnalysis Time Performed AtPathologist QhxjiowksOUJEIP59.613.0 - 60.0 IU/L1 8:01 AM [facility] LABSpecimen (Source) Anatomical Location / LateralityCollection Method / VolumeCollection Time Received TimeBloodBLOOD SPECIMEN / UnknownIV Start / Gwkjqej4403/02/2025 7:01 AM CDT1 7:40 AM CDT Narrative Authorizing ProviderResult TypeResult StatusConsuelo Khalil MDCHEMISTRYFinal ResultPerforming OrganizationAddressCity/State/ZIP CodePhone Number [facility] [address] [place] [address], * (ABNORMAL) HEPATIC FUNCTION PANEL (03/02/2025 7:01 AM CDT)ComponentValueRef RangeTest MethodAnalysis TimePerformed AtPathologist SignatureALBUMIN5.1(H)4.0 - 4.9 g/dL03/02/2025 8:01 AM [facility] LABPROTEIN,TOTAL8.8(H)6.0 - 8.0 g/dL03/02/2025 8:01 AM [facility] LABBILIRUBIN,TOTAL1.20.0 - 1.2 mg/dL 03/02/2025 8:01 AM [facility] LAB BILIRUBIN,DIRECT0.6(H)0.0 - 0.2 mg/dL03/02/2025 8:01 AM [facility] LABBILIRUBIN,INDIRECT0.60.2 - 0.8 mg/dL 03/02/2025 8:01 AM [facility] LAB ALK PNXVOWNHVZJ100(H)35 - 104 IU/L1 8:01 AM [facility] LABALT (SGPT)195(H)10 - 35 IU/L1 8:01 AM [facility] LABAST (SGOT)175(H) 10 - 35 IU/L1 8:01 AM [facility] LABSpecimen (Source)Anatomical Location / LateralityCollection Method / VolumeCollection TimeReceived TimeBloodBLOOD SPECIMEN / UnknownIV Start / Lhmxsnj2203/02/2025 7:01 AM CDT1 7:40 AM CDT Narrative Authorizing ProviderResult TypeResult StatusAdina Amrita Khalil MDCHEMISTRYFinal ResultPerforming OrganizationAddressCity/State/ZIP CodePhone Number [facility] [address] [place] [address], * Acute hepatitis panel TODAY (05/01/2021 8:31 AM TEMPORARY STAFF ACCOUNTANT)ComponentValueRef Range Test MethodAnalysis TimePerformed AtPathologist SignatureHEPATITIS C ANTIBODY Vdx-XhovbqryWut-Rlehtoyk72/07/2021 1:01 PM [facility]ORATORYComment:Antibodies to HCV not detected; does not exclude the possibility of exposure to HCV.IGM ANTI ARTNth-ZehhxqdtXip-Ojeodrdu55/07/2021 1:01 PM [facility] LABORATORYHBSAGNonreactive Opxyntkjqss60/07/2021 1:01 PM [facility] IGM ANTI HYEAxp-UsytmqmrVcj-Ybmutupc30/07/2021 1:01 PM [facility] LABORATORYSpecimen (Source)Anatomical Location / Laterality Collection Method / VolumeCollection TimeReceived TimeBloodBLOOD SPECIMEN / UnknownVenipuncture / Ofmjvvb0905/01/2021 8:31 AM CST05/01/2021 8:41 AM TEMPORARY STAFF ACCOUNTANT Narrative [facility] - 05/01/2021 1:01 PM TEMPORARY STAFF ACCOUNTANT Anti-HBc IgM not detected. Does not exclude the possibility of exposure to or infection with HBV. Authorizing ProviderResult TypeResult StatusSinisa Dariel MDSEND OUTSFinal ResultPerforming OrganizationAddressCity/State/ZIP CodePhone Number [facility] [address] [place] [address], from Last 3 Months or Most Recently Relevant to Health Maintenance Insurance * Guarantor: Lori HardingAccount TypeRelation to PatientDate of BirthPhone Billing AddressPersonal/HzlejjLwcf34/11/1991 [id number] [facility] [id number] Advance Directives * Full Code (Latest Code Status on File) Date ActivatedDate AumczgawqduCnsnlqnw89/6/2021 4:51 PM05/02/2021 2:29 PMQuestion AnswerCommentsCode Status Discussion:* Reviewed Preferences * Full Code Date ActivatedDate InactivatedComments12/28/2019 4:48 PM12/30/2019 12:45 PMQuestion AnswerCommentsCode Status Discussion:* Discussed * Full Code Date ActivatedDate InactivatedComments10/31/2019 1:05 AM11/02/2019 1:20 PM * Full Code Date ActivatedDate InactivatedComments09/25/2019 10:17 PM09/28/2019 2:22 PM * Full Code Date ActivatedDate InactivatedComments09/04/2019 9:54 AM09/06/2019 11:31 AM Care Teams Team MemberRelationshipSpecialtyStart DateEnd Date Mishel Coelho MD [address] [place] [address] PCP - GeneralFamily Ihciimvr81/17/25 Ami Felix NP Nurse Cgrqnbhsyynx49/5/21
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
[2025-05-17 23:05] VITALS: BP 136/87; PULSE 91; RESP 18; TEMP 37.2; O2SAT 99; BMI 30.5
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
[2025-05-18] MEDS: ONDANSETRON 2 MG/ML inj 4 MG IVP (00:04)
[2025-05-18 00:27] LABS: Chloride* 88 mmol/L (96-114)
[2025-05-18 00:28] LABS: Sodium* 130 mmol/L (135-149)
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
--- OUTSIDE RECORDS SUMMARY | 2025-05-18 00:29 | XMS_ITS | Encounter Summary ---
Author Organization [facility] er Address [address] [place] [phone] Care Team Providers Care Linoleum Layer Apprentice Name Role Phone Wendy Mcguire MD Primary Care Provider [phone] Encounter Details DateTypeDepartmentCare Team (Latest Contact Info)Ntumvwnqkoa03/25/2025Results Follow-Up [facility] Stringed Instrument Repairer [address] [place] [address] Carolina Alves MD [address] [place] [phone] Confirmed Drug Abuse Panel, Autumn, [...] RecordedIn the past 12 months has the [facility], gas, oil, or water [place] threatened to shut off services in your home?No08/18/2024Social Connection and Isolation PanelAnswerDate RecordedIn a typical week, how many times do you talk on the phone with family, friends, or neighbors?More than three times a week08/18/2024How often do you get together with friends or relatives?Once a week08/18/2024How often do you attend latter-day or nondenominational services?More than 4 times per year08/18/2024Do you belong to any clubs or organizations such as latter-day groups, unions, fraternal or athletic gela ups, or school groups?Yes08/18/2024How often do you attend meetings of the clubs or organizations you belong to?More than 4 times per year08/18/2024re you , , , , never , or living with a partner? Living with znfklwk5008/18/2024UDIT-CAnswerDate RecordedQ1: How often do you have a [...] housing, medical care, and heating?Hard08/18/2024PHQ-2AnswerDate RecordedPHQ-9 Total Jrvzs50412/30/2024 [place] of Occupational Health - Occupational Stress Questionnaire [...] from getting things needed for daily living?No08/18/2024 [place] Depression ScaleAnswerDate RecordedEdinburgh Depression Scale Vgmxi7276/26/2025The thought of harming myself has occurred to me.Never02/18/2025Housing Stability Vital SignAnswerDate RecordedIn the last 12 months, was there a time when you were not able to pay the mortgage or rent on time?Yes08/18/2024In the past 12 months, how many times have you moved where you were living?t any time in the past 12 months, were you homeless or living in a senior living (including now)?No08/18/2024CommentsNoSex and Gender InformationValueDate RecordedSex Assigned at BirthNot on fileLegal SexFemale 07/03/2021 2:24 PM CSTGender IdentityNot on fileSexual OrientationNot on file OccupationIndustryJob Start DateJob End DateManagerNot on fileNot on fileNot on filedocumented as of this encounter Functional Status * [place] Depression Scale: In the Past 7 DaysQuestionAnswerDate [...] 11:00 AM Shaan Fink RNEdinburgh Depression Scale Styjt5196/26/2025 11:00 AM Shaan Fink RN documented as of this encounter Plan of Treatment Not on file documented as of this encounter Visit Diagnoses Not on filedocumented in this encounter Care Teams Team MemberRelationshipSpecialtyStart DateEnd Date [facility], Wendy Medley MD [address] [place] [phone] PCP - [facility]12/08/24documented as of this encounter
--- OUTSIDE RECORDS SUMMARY | 2025-05-18 00:29 | XMS_ITS | Encounter Summary ---
Author Organization [facility] er Address [address] [place] [address] Care Team Providers Care Fishing Tool Operator Name Role Phone Wendy Mcguire MD Primary Care Provider [phone] Encounter Details DateTypeDepartmentCare Team (Latest Contact Info)Eqytxlqtwes53/15/2025Results Follow-Up [facility] Security System Engineer [address] [place] [address] Kala Saeed, DNP, BUTTON STATION WORKER, RN LONG TERM CARE [address] [place] [address] Group B strep culture Social [...] RecordedIn the past 12 months has the [employer], gas, oil, or water [employer] threatened to shut off services in your home?No08/18/2024Social Connection and Isolation PanelAnswerDate RecordedIn a typical week, how many times do you talk on the phone with family, friends, or neighbors?More than three times a week08/18/2024How often do you get together with friends or relatives?Once a week08/18/2024How often do you attend caodaism or voodoo services?More than 4 times per year08/18/2024Do you belong to any clubs or organizations such as caodaism groups, unions, fraternal or athletic gela ups, or school groups?Yes08/18/2024How often do you attend meetings of the clubs or organizations you belong to?More than 4 times per year08/18/2024re you , , , , never , or living with a partner? Living with jpckmfd3408/18/2024UDIT-CAnswerDate RecordedQ1: How often do you have a [...] housing, medical care, and heating?Hard08/18/2024PHQ-2AnswerDate RecordedPHQ-9 Total Dnnql21712/30/2024 [facility] of Occupational Health - Occupational Stress Questionnaire [...] from getting things needed for daily living?No08/18/2024 Powhattan Depression ScaleAnswerDate RecordedEdinburgh Depression Scale Uevsk0696/26/2025The thought of harming myself has occurred to me.Never02/18/2025Housing Stability Vital SignAnswerDate RecordedIn the last 12 months, was there a time when you were not able to pay the mortgage or rent on time?Yes08/18/2024In the past 12 months, how many times have you moved where you were living?t any time in the past 12 months, were you homeless or living in a skilled nursing (including now)?No08/18/2024CommentsYesSex and Gender InformationValueDate RecordedSex Assigned at BirthNot on fileLegal Sex Wsrtft8007/03/2021 2:24 PM CSTGender IdentityNot on fileSexual OrientationNot on fileOccupationIndustryJob Start DateJob End DateManagerNot on fileNot on fileNot on filedocumented as of this encounter Functional Status * QuestionAnswerDate of FwkptbzhxoOyyzifOK043/7902/14/2025 9:15 AM Eula Trinh RNPulse9302/14/2025 9:15 AM Eula Trinh RN * Powhattan Depression Scale: In the Past 7 DaysQuestionAnswerDate [...] 11:00 AM Shaan Fink RNEdinburgh Depression Scale Swyug7672/26/2025 11:00 AM Shaan Fink RN documented as of this encounter Plan of Treatment Not on file documented as of this encounter Visit Diagnoses Not on filedocumented in this encounter Care Teams Team MemberRelationshipSpecialtyStart DateEnd Date Shayla, Wendy Medley MD [address] [place] [phone] PCP - [facility]12/08/24documented as of this encounter
--- OUTSIDE RECORDS SUMMARY | 2025-05-18 00:29 | XMS_ITS | Encounter Summary ---
Author Organization [facility] er Address [address] [place] [address] Care Team Providers Care Correction Officer Head Name Role Phone Wendy Mcguire MD Primary Care Provider [phone] Encounter Details DateTypeDepartmentCare Team (Latest Contact Info)Hfzcssluoqd76/17/2025Results Follow-Up [facility] Executive Receptionist [address] [place] [address] Kala Saeed, DNP, HEALTH INSURANCE ADJUSTER, COMP FIELD CASE MANAGER [address] [place] [address] Ultrasound OB Biophysical Profile WO [...] RecordedIn the past 12 months has the [employer], gas, oil, or water [employer] threatened to shut off services in your home?No08/18/2024Social Connection and Isolation PanelAnswerDate RecordedIn a typical week, how many times do you talk on the phone with family, friends, or neighbors?More than three times a week08/18/2024How often do you get together with friends or relatives?Once a week08/18/2024How often do you attend pentecostalism or synagogue services?More than 4 times per year08/18/2024Do you belong to any clubs or organizations such as pentecostalism groups, unions, [employer] or athletic gela ups, or school groups?Yes08/18/2024How often do you attend meetings of the clubs or organizations you belong to?More than 4 times per year08/18/2024re you , , , , never , or living with a partner? Living with pctbjuc6108/18/2024UDIT-CAnswerDate RecordedQ1: How often do you have a [...] housing, medical care, and heating?Hard08/18/2024PHQ-2AnswerDate RecordedPHQ-9 Total Ibqza94412/30/2024 [facility] of Occupational Health - Occupational Stress Questionnaire [...] from getting things needed for daily living?No08/18/2024 [place] Depression ScaleAnswerDate RecordedEdinburgh Depression Scale Twdel3263/26/2025The thought of harming myself has occurred to me.Never02/18/2025Housing Stability Vital SignAnswerDate RecordedIn the last 12 months, was there a time when you were not able to pay the mortgage or rent on time?Yes08/18/2024In the past 12 months, how many times have you moved where you were living?t any time in the past 12 months, were you homeless or living in a [place] (including now)?No08/18/2024CommentsYesSex and Gender InformationValueDate RecordedSex Assigned at BirthNot on fileLegal Sex Vxoldi3607/03/2021 2:24 PM CSTGender IdentityNot on fileSexual OrientationNot on fileOccupationIndustryJob Start DateJob End DateManagerNot on fileNot on fileNot on filedocumented as of this encounter Functional Status * QuestionAnswerDate of GkkbrwbncyBsqelkWR647/7902/14/2025 9:15 AM Eula Trinh, DLPrqqg9373/22/2025 9:15 AM Eula Trinh RN * [place] Depression Scale: In the Past 7 DaysQuestionAnswerDate [...] 11:00 AM Shaan Fink RNEdinburgh Depression Scale Txare9232/26/2025 11:00 AM Shaan Fink RN documented as of this encounter Plan of Treatment Not on file documented as of this encounter Visit Diagnoses Not on filedocumented in this encounter Care Teams Team MemberRelationshipSpecialtyStart DateEnd Date ShaylaWendy MD [address] [place] [phone] [facility]12/08/24documented as of this encounter
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
--- OUTSIDE RECORDS SUMMARY | 2025-05-18 00:29 | XMS_ITS | Clinical Summary ---
Author Organization [facility] Address [address] [place] [address] Care Team Providers Care Plate Washer Name Role Phone Ami Felix CNC MILL PROGRAMMER Unavailable Mishel Loja MD Primary Care Prov ider Allergies No known active allergies Medications MedicationSigDispense QuantityRefillsLast FilledStart DateEnd DateStatus uvbxraa-truhyjwohqorm-nwgtakwc (EXCEDRIN MIGRAINE) 250-250-65 mg Take 2 tablets by mouth every 6 hours if needed for Headache. Max acetaminophen dose: 4000mg in 24 hrs.Active SUMAtriptan (IMITREX) 50 mg tablet Take 50 mg by mouth one time if needed.03/12/2021ctive nxlfaec-ipqetgleedozb-balldwkx (Excedrin Migraine) 250-250-65 mg Take 1 Tablet [...] of 148. 3 hour GTT ordered at [facility]- no evidence of completion. 02/02/2025 Did not fully complete the 3 hour GTT. [facility] Results Component Value Date 1HRGTT 131 02/02/2025 KXWIMLH1JJ 163 02/02/2025 3HRGTT TNP 02/02/2025 12/30/2024 1 [...] disclosed he has started drinking again. [facility] brochure provided. Medical SS referral placed for additional resource information. Psychotherapy SS referral also placed. Carpal tunnel /19/2025 Overview (03/11/2025): 5.20.25 MFM Carpal Tunnel in [...] Take2 and 1/2 tablets daily Marijuana smoker, akwbtaqy58/18/2025 Overview (03/11/2025): 08/18/24 @ [facility], last use reportedly 11/2023. Prelim RUDS THC +. Confirmatory testing was cancelled --->not enough urine. Can plan to collect drug screen on center. -[place] 10.12.24 [facility] Cannabis use in --DOC marijuana but denies other substance use --HPI: last use: THC + May tox and still occ rare use; no ETOH since before March --counseled on risks, plans to continue use and declines treating any sx THC is addressing with safe medications; aware of maternal tox and mec screen at delivery per protocol Vapes nicotine containing kegirioct51/18/2025 Overview (03/11/2025): 07.13.24 [facility] Call Vaping Use Vaping status: Some Days Substances: Flavoring 08/18/24 @[facility] quiet vaping/smoking mid-June after pos test. -[place] History of alcohol abuse12/04/2023 Overview (03/11/2025): 07.13.24 [facility] Call History of substance abuse: History of alcoholism and marijuana use. Reports being sober since 12/20/23. Please note ER visit at [facility] on 04/22/24 for alcohol abuse with intoxication. She is currently at [facility]. Her fiance is a recovering alcoholic as well and reports being sober for 8 months. - Social History Narrative Lori is a resident at [facility] and will be graduating from the [...] Call She has declined a referral to [facility] Material [employer] Supervisor at this time. 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 * Thank you! 10.12.24 [...] risk so shared decision making Acute renal kbenrfl7711/10/2023lcoholic fatty liver11/10/2023Nicotine dependence, other tobacco product, aeqpjzojxasbz39/17/2024 Overview (03/11/2025): 08/18/24 @[facility] quiet vaping/smoking mid-June after pos test. -[place] Sntnfl8809/29/2023History of psychological zigsjx3009/19/2023Severe episode of recurrent major depressive disorder, without psychotic nokrxkgd96/26/2024 Vypfmebjhygbhbom34/20/2024lcoholic toqaouvuo50/07/2021GERD (gastroesophageal reflux disease)04/30/2021Migraine ldhocwpz64/18/1444Ukxcvomzafk00/05/2020 Overview (03/11/2025): 01/06/25: K 2.9, received potassium bicarb 60 meq once in ER Alcohol dependence with intoxication, gofhiezoavtkx36/08/2020H. pylori infection 07/07/2019Anxiety glgebvnn28/08/2015 Overview (03/11/2025): 2.18.25 [facility] Call sertraline (ZOLOFT) 50 MG tablet TAKE 2 & 1/2 TABLETS BY MOUTH DAILY traZODone (DESYREL) 50 MG tablet 1-3 tablets po at bedtime prn 5.20.25 M Mood or mental health disorder in --dx: [facility] trauma MDD --inpatient stay or history of suicide: none --meds; zoloft 50 --therapy: no --sx: stable Acne02/14/2012Persistent depressive vejacjjf68/05/2012 Overview (03/11/2025): Dysthymic Disorder (300.4) PUD (peptic ulcer disease) Resolved Problems ProblemNoted DateDiagnosed DateResolved DateVacuum-assisted vaginal delivery Uterine fibroid in ltwvporyk94 Overview (03/11/2025): Anatomy scan Single viable intrauterine at 20 weeks and 2 days with best HEATH February 27, 2025. No apparent abnormalities on comprehensive anatomic survey. Size equals dates. 311 g. 20%. Amniotic fluid isnormal. Placenta is anterior without previa. Incidental note posterior mid position fibroid measuring 6.5 cm in greatest diameter Clostridioides difficile suiaoowgb43 Overview (03/11/2025): 11/03/24: abx tx through acute care, cefpodoxemine, confirmed adequate w/ susceptibilities November 24, 2024: Patient diagnosed with C. difficile at [facility] emergency department (November 22, 2024). Prescription provided November 23, 2024 by [facility] for vancomycin 125 mg 4 times a day for 10 days. Perform test of cure after completion of vancomycin. [facility] November 25, 2024: Patient diagnosed with C. difficile at [facility] emergency department (November 22, 2024). Prescription provided by [facility] November 23, 2024 for vancomycin 125 mg 4 times a day for 10 days. [facility] Hyperemesis gravidarum with metabolic disturbance, qulzclsrke67/03/2025 03/11/2025 Overview (03/11/2025): 5.20.25 MFM Nausea and vomiting of --total weight change: 11.8 kg (26 lb) --meets criteria for hyperemesis (wt loss of > 5% or electrolyte abnormalities): no --meds: on B6/doxylamine --> zofran --sx: getting better - rare days now - discouraged THC use 11.20.24 [facility] ED 34 year old at 25w6d who [...] a few days (she getsprenatal care at [facility]. November 24, 2024: Patient with ongoing nausea and vomiting. Patient with numerous IV hydration trips tothe emergency department both at [facility] and [facility]. Patient currently on Zofran. Given patient's history [...] C. Difficile at the November 22, 2024 [facility] emergency room visit. Please contact patient and confirm that she is taking thevancomycin as prescribed by [facility] emergency department department. Also query about how she is doing with her nausea and vomiting and encourage presentation to OB clinic or our emergency department if she is unable to keep fluids down. Patient reporting improving symptoms yesterday. Benadryl and Zantac added to her treatment regimen. Patient had mild electrolyte abnormalities corrected at [facility] emergency department in June 2024. 01.03.25 [facility] ED Patient presents for the third time [...] discharge her home to have follow-up with [facility]ER[facility]ER and I placed a referral. Herpes outkayygf46 Overview (03/11/2025): 08/18/24 h/o genital HSV. Last outbreak Fall 2023. Discussed prophylaxis starting at 36 weeks. -[place] 5.20.25 MFM HSV in --First dx - remote --Last outbreak 2023 --Rx: none --Sx: none Supervision of elderly primigravida, unspecified zwbbcgxle15 Overview (03/11/2025): 33 y.o. 5.20.25 MFM Advanced maternal age --age at delivery: 34 --genetic screening for aneuploidy: Low risk cell free DNA --last delivery: N/A --TSH: not done-consider adding on at 28 weeks based upon [place] [employer] guidelines --Future fertility: N/A Alcohol withdrawal ufiwonev50History of pgyextf7510/06/2023 03/11/2025Nausea & hezvwbmi40ute metabolic acidosis Ketosislcohol use Alcoholic ettppao08Respiratory krzigixuq07 Increased anion gap metabolic fgikypvv38Hypokalemia09/27/2019 12/28/20190305Sxgtqhssbkfdda14/04/202008/04/2020pH aafdmvk02 Qzombphcndpj91Elevated MCVHyperglycemia Toxic effect of rhexadq18Starvation ohfgibtudlmf54Nausea and tggrquej06 Hiueisvfadql97Acidosis, baydqdksy24Abnormal liver function tests2798Xmpejyzwbaodhess43/04/201708/04/2020 Encounters DateTypeDepartmentCare XrpvJvrurrogkur52/25/2025 3:05 PM CSTOffice Visit [facility] [address] [place] [address] Mishel Coelho MD Follow Up; Medication Teadynljte06/25/1597Ahorwa11/18/2025Patient Outreach [facility] Management - Care Management Navigation/[facility] [address] [place] [address] Fred Morales-Community Resource Papamxorrz48/17/2025 1:50 PM CDTOffice Visit [facility] [address] [place] [address] Mishel Coelho MD Establish Care03/11/20254857Nweokt04/08/2025 6:04 AM CDT - 03/02/2025 10:29 AM CDT Emergency [address] [address] Consuelo Khalil MD Holloway, Dani Hubbard MD Alcoholic ketoacidosis (Primary Dx); Nausea and vomiting, unspecified vomiting type Discharge Disposition: Home Self Care03/02/20254417Vuntls96/06/2025Nurse Triage [address] [address] Pcp, No Care02/28/2025Telephone [address] [address] Pcp, No Error-please disregardfrom Last 3 Months Immunizations ImmunizationAdministration DatesNext DueCOVID-19 vaccine (Pfizer-BioNTech 30mcg/0.3mL) 12YO+ HILARY-SUCROSE PF, MDV04/6708GLzV46/01/1996,03/16/1992, 12/11/1990,02/02/1990,1989Hepatitis B, Xtizyuccerb30/28/2001,02/12/2000, 01/11/2000Hib Conjugate, Ysvqrrstveu78/22/1992,12/11/1990,02/02/1990,1989 Human Papilloma Virus Ljedzdl2408/17/2014,02/03/2013,07/06/2012Influenza Virus, Dxenmckctxh17/27/2012Influenza, IIV3 (Age >=3 years)06/29/2013Influenza, IIV4 06/29/2013MMR01/11/2000,12/11/1990Polio Virus, Ftgapcdlmen33/01/1996,03/16/1992, 02/02/1990,1989Td (Age >=7 Years)07/17/2005Tdap12/30/2024,08/17/2014, 07/17/2005 Family History Medical HistoryRelationNameCommentsNephrolithiasisFatherDiabetesMaternal GrandmotherHeart DiseasePaternal GrandfatherAsthmaSisterDiabetesSisterborderline RelationNameStatusCommentsFatherMaternal GrandmotherPaternal GrandfatherSister Social History Tobacco UseTypesPacks/DayYears UsedDateSmoking Tobacco: FormerSmokeless Tobacco: Never Tobacco Cessation:Counseling Given: Yes Alcohol UseStandard Drinks/WeekCommentsYes0 (1 standard drink = 0.6 oz pure alcohol)sociallyPHQ-2AnswerDate RecordedPHQ-2 TOTAL AJIKX00506/19/2024Social ConnectionsAnswerDate RecordedDo you often feel lonely or isolated from those around you?lcohol UseAnswerDate RecordedHow often do you have a drink containing alcohol?How many drinks containing alcohol do you have on a typical day when you are drinking?Frequency of Binge DrinkingNot on file04/19/2025Financial Resource StrainAnswerDate Recorded Difficulty of Paying Living Tssjjfcj986/17/2025Difficulty of Paying Living Hyrdgcbg872/17/2025Food InsecurityAnswerDate RecordedDo you worry your food will [...] Recorded Sex Assigned at BirthNot on fileLegal WraNhlrpl46/14/2013 7:52 AM CSTGender IdentityNot on fileSexual OrientationNot on fileOccupationIndustryJob Start Date Job End Datelaid off 09/09/2019Not on fileNot on fileNot on file Last Filed Vital Signs Vital SignReadingTime TakenCommentsBlood Uftfihby968/8211 3:24 PM COOK APPRENTICE PASTRY Gtusr843204/19/2025 2:54 PM KMIRemkpcuzeio01.6 ??C (97.8 ??F)03/02/2025 6:05 AM CDTRespiratory Wluw6081 6:05 AM CDTOxygen Jywaczanuj28%04/19/2025 2:54 PM CSTInhaled Oxygen Concentration--Zqjwtv70.6 kg (160 lb)03/11/2025 2:09 PM CDT Tajbvk464.4 cm (5')03/02/2025 6:05 AM CDTBody Mass Index31.251 6:05 AM CDT Plan of Treatment DateTypeDepartmentCare Team (Latest Contact Info)Pmcyiagqnen02/27/2026 1:25 PM CSTOffice Visit [facility] [address] [facility] [place] [address] Mishel Coelho MD [address] [place] [address] Health MaintenanceDue DateLast DoneCommentsHIV for age 15-65009/03/2004 Pneumococcal series for age 6-49 (1 of 2 - PCV)2008MI (ht and wt on same day) for age 18+/02/2020, 06/09/2019COVID-19 vaccine series (2 - 2024- season)/10/2022Influenza Vaccine (#1)/08/2013, 06/29/2013, 02/20/2012Depression screening for age 12+6106/19/2024, 03/11/2025, 06/11/2019, Additional history existsPap test for age 21-65 7007/06/2021 (Verified in Care Everywhere or Patient Record)Tetanus zfbtjoz88/11/2024, 08/17/2014, 07/17/2005, Additional history exists Hepatitis B series for 19+Hzqxbqxwh41/28/2001, 02/12/2000, 01/11/2000HPV series for age 9-24Epaafdbgz63/25/2015, 02/03/2013, 07/06/2012Hepatitis C screening for age 18-80Qeffbqctu27/07/2021, 2019 Procedures Procedure NamePriorityDate/TimeAssociated DiagnosisCommentsBETA HYDROXYBUTYRATE IN HOUSEAdd On03/02/2025 9:30 AM CDT BASIC METABOLIC CEBAJHLPW72/08/2025 9:30 AM CDT URINALYSIS HZVFRKBFIEURgbua20/08/2025 8:17 AM CDT YZRMJPtnwq09/08/2025 8:17 AM CDT UA W/ SEDIMENT EXAM REFLEXED PER LWZOIJCBQfeyi86/08/2025 8:17 AM CDT US ABDOMEN LIMITED RUQ EYBFUUOBBNXZ99/08/2025 7:55 AM CDT ETHANOL SERUM OR GZZYUOGALA06/08/2025 7:01 AM CDT XTSZOSCCXE56/08/2025 7:01 AM CDT HEPATIC FUNCTION TLDWGMKBW75/08/2025 7:01 AM CDT BASIC METABOLIC EVKAEMHVB50/08/2025 7:01 AM CDT CBC W PLT NO NUPFXHQF65/08/2025 7:01 AM CDT ACUTE HEPATITIS KHGKUTUAA17/07/2021 8:31 AM [facility] APPRENTICE PASTRY from Last 3 Months or Most Recently Relevant to Health Maintenance Results * (ABNORMAL) BETA HYDROXYBUTYRATE IN HOUSE (03/02/2025 9:30 AM CDT)Component ValueRef RangeTest MethodAnalysis TimePerformed AtPathologist SignatureBETA HYDROXYBUTYRATE>6.0(H)<0.6 mmol/L1 9:38 AM CDTALDELAWARE PSYCH[facility]AT[facility] LABSpecimen (Source)Anatomical Location / LateralityCollection Method / VolumeCollection TimeReceived TimeBloodBLOOD SPECIMEN / UnknownVenipuncture / Xvrctdx4803/02/2025 9:30 AM CDT1 9:34 AM CDT Narrative Authorizing ProviderResult TypeResult StatusAdina Amrita Khalil MDSEND OUTSFinal ResultPerforming OrganizationAddressCity/State/ZIP CodePhone Number [facility] [address] [place] [address], [place] [phone] * (ABNORMAL) BASIC METABOLIC PANEL (03/02/2025 9:30 AM CDT) Only the most recent of2 resultswithin the time period is included. ComponentValueRef RangeTest MethodAnalysis TimePerformed AtPathologist Signature VGLVLP652423 - 145 mmol/L1 10:00 AM [facility] LABPOTASSIUM4.53.5 - 5.1 mmol/L1 10:00 AM CDT [facility] TGBCHYKIELG64435 - 107 mmol/L1 10:00 AM [facility] LABCO2,TOTAL7(LL)22 - 29 mmol/L1 10:00 AM [facility] LABComment:Interpret with caution. Spurious values may occur in patients with hyperlipidemia. If low bicarbonate result does not match the clinical picture, consider blood gas analysis, which does not appear clare affected by hyperlipidemia.ANION GAP27(H)5 - 181 10:00 AM [facility] GRMWJLGUYM3218 - 99 mg/dL03/02/2025 10:00 AM [facility] LABCALCIUM8.7(L)8.8 - 10.4 mg/dL03/02/2025 10:00 AM [facility] LABComment: Reference ranges for this test were updated on 03/30/2024 to reflect our healthy population more accurately. Reference range changes are not retroactively applied to results, but previous results using the same methodology can be interpreted in the context of the new reference range. BUN5(L)6 - 20 mg/dL03/02/2025 10:00 AM [facility] LABCREATININE0.790.50 - 0.90 mg/dL03/02/2025 10:00 AM [facility] LABBUN/CREAT RATIO6(L)10 - 20 03/02/2025 10:00 AM [facility] LAB eGFR>90>90 mL/min/1.55e53703/02/2025 10:00 AM [facility] LABComment:As of 08/07/2021, eGFR is calculated by the CKD-EPI creatinine equation without race adjustment. ??eGFR can be influenced by muscle mass, exercise, and diet. ??The reported eGFR is an estimation onlyand is only applicable if the renal function is stable.Specimen (Source)Anatomical Location / LateralityCollection Method / VolumeCollection TimeReceived TimeBlood BLOOD SPECIMEN / UnknownVenipuncture / Ogcikdh2603/02/2025 9:30 AM CDT1 9:34 AM CDT Narrative Authorizing ProviderResult TypeResult StatusKyle Stevie Valdez MDCHEMISTRY Final ResultPerforming OrganizationAddressCity/State/[facility] CodePhone Number [facility] [place] [address], * (ABNORMAL) URINALYSIS MICROSCOPIC (03/02/2025 8:17 AM CDT)ComponentValueRef RangeTest MethodAnalysis TimePerformed AtPathologist SignatureRBC3-5(A)0-2, None Seen /HPF03/02/2025 8:31 AM [facility] CWLHPT40-58(A)0-2, 3-5, None Seen /HPF03/02/2025 8:31 AM CDT [facility] LABBACTERIAModerate(A) None Seen, Rare, Few Bacteria/HPF03/02/2025 8:31 AM [facility] LABEPITHELIAL CELLSFewNone Seen, Few Epi/HPF 03/02/2025 8:31 AM [facility] BgqjdKybgmeo28/08/2025 8:31 AM [facility] LABWHITE CELL CLUMPSPresent(A)(none)03/02/2025 8:31 AM [facility] LABSpecimen (Source)Anatomical Location / LateralityCollection Method / VolumeCollection TimeReceived Time UrineURINE SPECIMEN / UnknownNon-Blood / Bqamybv5103/02/2025 8:17 AM CDT 03/02/2025 8:17 AM CDT Narrative Authorizing ProviderResult TypeResult StatusAdina Amrita Khalil MDURINEFinal ResultPerforming OrganizationAddressCity/State/ZIP CodePhone Number [facility] [address] [place] [address], * (ABNORMAL) UA W/ SEDIMENT EXAM REFLEXED PER CRITERIA (03/02/2025 8:17 AM CDT) ComponentValueRef RangeTest MethodAnalysis TimePerformed AtPathologist SignatureCOLORYellowYellow Color03/02/2025 8:30 AM [facility] LABCLARITYSlightly Cloudy(A)Clear Clarity 03/02/2025 8:30 AM [facility] SPECIFIC GRAVITY,URINE>=1.030(A)1.010, 1.015, 1.020, 1.3116503/02/2025 8:30 AM [facility] LABPH,URINE6.06.0, 7.0, 8.0, 5.5, 6.5, 7.5, 8.510 8:30 AM [facility] LABUROBILINOGEN,QUALITATIVENormalNormal EU/dl 03/02/2025 8:30 AM [facility] PROTEIN, VTJXO000(A)Negative mg/dL03/02/2025 8:30 AM [facility] LABGLUCOSE, URINENegativeNegative mg/dL 03/02/2025 8:30 AM [facility] KETONES,URINE>=80(A)Negative mg/dL03/02/2025 8:30 AM [facility] LABBILIRUBIN,URINEAbnormal(A)Negative 03/02/2025 8:30 AM [facility] Comment:A variety of metabolites and/or medications may result in a positive bilirubin result. Clinical correlation is recommended.OCCULT BLOOD,URINE Moderate(A)Mqapefho46/08/2025 8:30 AM [facility] JASBZZCVULRkwzilpxWcjtbokc39/08/2025 8:30 AM [facility] LABLEUKOCYTE ESTERASETrace(A) Aiefruir10/08/2025 8:30 AM [facility] LABSpecimen (Source)Anatomical Location / LateralityCollection Method / VolumeCollection TimeReceived TimeUrineURINE SPECIMEN / UnknownNon-Blood / Fdxtfid4203/02/2025 8:17 AM CDT1 8:17 AM CDT Narrative Authorizing ProviderResult TypeResult StatusAdinjackie Khalil MDURINEFinal ResultPerforming OrganizationAddressCity/State/ZIP CodePhone Number [facility] [address] [place] [address], [place] [phone] * URINE (03/02/2025 8:17 AM CDT)ComponentValueRef RangeTest Method Analysis TimePerformed AtPathologist SignaturePREGNANCY,URINENegativeNegative 03/02/2025 8:25 AM [facility] Specimen (Source)Anatomical Location / LateralityCollection Method / Volume Collection TimeReceived TimeUrineURINE SPECIMEN / UnknownNon-Blood / Unknown 03/02/2025 8:17 AM CDT1 8:17 AM CDT Narrative Authorizing ProviderResult TypeResult StatusConsuelo Khalil MDURINEFinal ResultPerforming OrganizationAddressCity/State/ZIP CodePhone Number [facility] [address] [place] [address], [place] [phone] * US ABDOMEN LIMITED RUQ PORTABLE (03/02/2025 [...] EXAM: US ABDOMEN LIMITED RUQ PORTABLE LOCATION: [facility] DATE: 03/02/2025 INDICATION: Abdomen pain Right [...] EXAM: US ABDOMEN LIMITED RUQ PORTABLE LOCATION: [facility] DATE: 03/02/2025 INDICATION: Abdomen pain Right [...] 4.5 - 11.0 thou/cu mm03/02/2025 7:43 AM [facility] LABRED BLOOD COUNT4.154.00 - 5.20 mil/cu mm03/02/2025 7:43 AM [facility] LABHEMOGLOBIN 12.212.0 - 16.0 g/dL03/02/2025 7:43 AM [facility] CSXMBUTYDEJNU10.733.0 - 51.0 %03/02/2025 7:43 AM CDT [facility] UTRMWE7711 - 100 fL 03/02/2025 7:43 AM [facility] MCH29.426.0 - 34.0 pg03/02/2025 7:43 AM [facility] WSKFSZP78.432.0 - 36.0 g/dL03/02/2025 7:43 AM [facility] IXZCPC62.6(H)11.5 - 15.5 % 03/02/2025 7:43 AM [facility] PLATELET BWGSE653880 - 440 thou/cu mm03/02/2025 7:43 AM [facility] LABMPV9.86.5 - 11.0 fL03/02/2025 7:43 AM [facility] LABNRBC0.0% 03/02/2025 7:43 AM [facility] ABS NRBC0.0thou /cu mm03/02/2025 7:43 AM [facility] LABSpecimen (Source)Anatomical Location / Laterality Collection Method / VolumeCollection TimeReceived TimeBloodBLOOD SPECIMEN / UnknownIV Start / Rwdttad5603/02/2025 7:01 AM CDT1 7:40 AM CDT Narrative Authorizing ProviderResult TypeResult StatusConsuelo Khalil MDHEMATOLOGYFinal ResultPerforming OrganizationAddressCity/State/ZIP CodePhone Number [facility] [address] [place] [address], * ETHANOL SERUM OR PLASMA (03/02/2025 7:01 AM CDT)ComponentValueRef RangeTest MethodAnalysis TimePerformed AtPathologist SignatureETHANOL<0.010<0.010 g/dL 03/02/2025 7:59 AM [facility] Specimen (Source)Anatomical Location / LateralityCollection Method / Volume Collection TimeReceived TimeBloodBLOOD SPECIMEN / UnknownIV Start / Unknown 03/02/2025 7:01 AM CDT1 7:40 AM CDT Narrative Authorizing ProviderResult TypeResult StatusConsuelo Khalil MDCHEMISTRYFinal ResultPerforming OrganizationAddressty/State/ZIP CodePhone Number [facility] [address] [place] [address], * LIPASE (03/02/2025 7:01 AM CDT)ComponentValueRef RangeTest MethodAnalysis Time Performed AtPathologist GowwocljqGGFJZC89.613.0 - 60.0 IU/L1 8:01 AM [facility] LABSpecimen (Source) Anatomical Location / LateralityCollection Method / VolumeCollection Time Received TimeBloodBLOOD SPECIMEN / UnknownIV Start / Csxgybq7003/02/2025 7:01 AM CDT1 7:40 AM CDT Narrative Authorizing ProviderResult TypeResult StatusConsuelo Khalil MDCHEMISTRYFinal ResultPerforming OrganizationAddressCity/State/ZIP CodePhone Number [facility] [address] [place] [address], * (ABNORMAL) HEPATIC FUNCTION PANEL (03/02/2025 7:01 AM CDT)ComponentValueRef RangeTest MethodAnalysis TimePerformed AtPathologist SignatureALBUMIN5.1(H)4.0 - 4.9 g/dL03/02/2025 8:01 AM [facility] LABPROTEIN,TOTAL8.8(H)6.0 - 8.0 g/dL03/02/2025 8:01 AM [facility] LABBILIRUBIN,TOTAL1.20.0 - 1.2 mg/dL 03/02/2025 8:01 AM [facility] BILIRUBIN,DIRECT0.6(H)0.0 - 0.2 mg/dL03/02/2025 8:01 AM [facility] LABBILIRUBIN,INDIRECT0.60.2 - 0.8 mg/dL 03/02/2025 8:01 AM [facility] ALK YTPFETSGZYH963(H)35 - 104 IU/L1 8:01 AM [facility] LABALT (SGPT)195(H)10 - 35 IU/L1 8:01 AM [facility] LABAST (SGOT)175(H) 10 - 35 IU/L1 8:01 AM [facility] LABSpecimen (Source)Anatomical Location / LateralityCollection Method / VolumeCollection TimeReceived TimeBloodBLOOD SPECIMEN / UnknownIV Start / Ouyjfmy6403/02/2025 7:01 AM CDT1 7:40 AM CDT Narrative Authorizing ProviderResult TypeResult StatusAdina Amrita Khalil MDCHEMISTRYFinal ResultPerforming OrganizationAddressCity/State/ZIP CodePhone Number [facility] [address] [place] [address], * Acute hepatitis panel TODAY (05/01/2021 8:31 AM [facility] APPRENTICE PASTRY)ComponentValueRef Range Test MethodAnalysis TimePerformed AtPathologist SignatureHEPATITIS C ANTIBODY Ypo-QmtqtrpcWmx-Jsmbncmo82/07/2021 1:01 PM CSTJE[facility] LABORATORYComment:Antibodies to HCV not detected; does not exclude the possibility of exposure to HCV.IGM ANTI HSERcv-LeuvvyogQxr-Pimpxyab87/07/2021 1:01 PM CSTJEFF[facility] LABORATORYHBSAGNonreactive Kcudpsmtaqt84/07/2021 1:[address] [facility] IGM ANTI WEWRpq-OuuekplcAri-Qpbitppt18/07/2021 1:[address] [facility] LABORATORYSpecimen (Source)Anatomical Location / Laterality Collection Method / VolumeCollection TimeReceived TimeBloodBLOOD SPECIMEN / UnknownVenipuncture / Ikmftnn3705/01/2021 8:31 AM CST05/01/2021 8:41 AM [facility]PRENTICE PASTRY Narrative [facility] - 05/01/2021 1:01 PM [facility] APPRENTICE PASTRY Anti-HBc IgM not detected. Does not exclude the possibility of exposure to or infection with HBV. Authorizing ProviderResult TypeResult StatusSinisa Dariel MDSEND OUTSFinal ResultPerforming OrganizationAddressCity/State/ZIP CodePhone Number [facility] [address] [place] [address], from Last 3 Months or Most Recently Relevant to Health Maintenance Insurance * Guarantor: Lori HardingAccount TypeRelation to PatientDate of BirthPhone Billing AddressPersonal/HqizasDren01/11/1991 [id number] [facility] [id number] Advance Directives * Full Code (Latest Code Status on File) Date ActivatedDate BrruywemilsIywcxugn70/6/2021 4:51 PM05/02/2021 2:29 PMQuestion AnswerCommentsCode Status Discussion:* [...] DateEnd Date Mishel Coelho MD [address] [place] [address] PCP - GeneralFamily Hvjqufvp67/17/25 Ami Felix NP Nurse Votskfedxxjp25/5/21
[2025-05-18 00:31] LABS: Anion Gap 13 mEq/L (7-15); Blood Urea Nitrogen* 15 mg/dL (5-24); Calcium* 9.9 mg/dL (8.4-10.6); Carbon Dioxide* 29 mmol/L (20-32); Creatinine* 0.7 mg/dL (0.5-1.5); Est. Creatinine Clearance* 80.57; Estimated Glomerular Filt Rate 116 ml/min; Glucose* 118 mg/dL (60-115)
[2025-05-18 00:34] LABS: Ethanol* < 0.01 % (0.01-0.03); Potassium* 2.8 mmol/L (3.6-5.1)
[2025-05-18] MEDS: POTASSIUM CHLORIDE 10 MEQ/100 ML PIGGYBACK 50 MEQ IVPB (01:07)
[2025-05-18] MEDS: LACTATED RINGERS 1000 ML 1,000 ML IV (01:23)
[2025-05-18] MEDS: METOCLOPRAMIDE HCL 10 MG in 0.9 % SODIUM CHLORIDE 100 ml 100 ML 306 MG IVPB (01:57)
[2025-05-18] MEDS: POTASSIUM CHLORIDE 10 MEQ/100 ML PIGGYBACK 60 MEQ IVPB (02:41)
[2025-05-18] MEDS: POTASSIUM BICARB 25 MEQ EFFERVESCENT TAB PO (03:24)
[2025-05-18] MEDS: POTASSIUM CHLORIDE 10 MEQ CAPSULE ER 40 MEQ PO (03:46)
[2025-05-18 04:47] VITALS: BP 130/86; PULSE 82; RESP 16; O2SAT 95
== END 2025-05-18 04:48 | disposition home or self-care (01) ==
PROVIDERS: Family Medicine; Emergency Provider Family Medicine
DX: F10.239 Alcohol dependence with withdrawal, unspecified (principal); R11.2 Nausea with vomiting, unspecified; E87.6 Hypokalemia
CPT/HCPCS: 36415; 80048; 82077; 83605; 96361; 96365; 96366; 96367; 96375; 99284; 99285; A9270; J2405; J2765; J3480; J7030; J7120